=== PATIENT | male | born 1975 | race Caucasian/White ===

== ENCOUNTER 2020-08-11 13:38 | Inpatient (IN) | payer OTHER, SELFPAY ==
[2020-08-11] VITALS (8 sets, daily range): BP systolic 117–147; BP diastolic 69–87; PULSE 87–110; RESP 14–32; TEMP 37.1–39.3; O2SAT 85–98; BMI 40.8
--- NOTE | ~2020-08-11 | XR_ITS ---
EXAMINATION: XR CHEST CLINICAL INFORMATION: Shortness of breath COMPARISON: Chest radiographs 01/25/2019, 06/27/2010 TECHNIQUE: Portable upright AP view of the chest was obtained. FINDINGS: There are scattered patchy airspace opacities bilateral mid and lower zones, greater on the right. No definite associated effusion. The heart is normal in size. The vascularity is normal. XR/XR chest 1V IMPRESSION: Bilateral patchy airspace opacities mid and lower zones, greater on right. Finding may be related to multifocal or atypical/viral pneumonia.
--- NOTE | 2020-08-11 13:55 | ED.SOB ---
HPI - SOB/Dyspnea General Chief Complaint: Dyspnea Stated Complaint: FLU LIKE SYMPTOMS Time Seen by Provider: 08/11/20 13:55 Source: patient Mode of arrival: EMS Limitations: no limitations History of Present Illness HPI Narrative: 2 days of fever, chills, cough, and shortness of breath. Had finished his Covid vaccinations in early July elicited complaint: shortness of breath Pertinent past history: asthma Onset (ago): day(s) Context: recent illness Timing: constant Severity: moderate Exacerbating factors: exertion Relieving factors: oxygen Known history of: asthma Associated symptoms: fever, cough and lightheadedness Treatment prior to arrival: oxygen Related Data Allergies Allergy/AdvReac Type Severity Reaction Status Date / Time morphine [Morphine] Allergy Intermediate RASH/SWELLI Unverified 12/25/19 17:44 NG Review of Systems Constitutional: Constitutional: Reports no additional constitutional complaints Eyes: Eyes: Reports no additional eye complaints ENT: Denies dizziness Cardiovascular: Cardiovascular: Reports no additional cardiovascular complaints Respiratory: Respiratory: Reports as per HPI Gastrointestinal: Gastrointestinal: Reports no additional gastrointestinal complaints Musculoskeletal: Musculoskeletal: Reports no additional musculoskeletal complaints Integumentary/Breasts: Skin/Breast: Denies rash Neurologic: Reports system reviewed and no additional complaints, except as documented, Denies dizziness and Denies Sensory deficit (Neuro) Psychiatric: Psychiatric: Denies anxiety PMFSH Past Medical History Medical History Asthma Hypertension Surgical History H/O gastric bypass Social History Social History Advance Directives: Yes Advance Directives Information Provided: Yes Advance Directives on File: No Physical Exam Vital Signs: Vital Signs: Last Vital Signs Temp 99.3 F 08/11/20 16:13 Pulse 97 08/11/20 16:13 Resp 19 08/11/20 16:13 BP 127/81 08/11/20 16:13 Pulse Ox 95 08/11/20 16:13 Body Mass Index 40.8 Const: Other: Male short of breath Nutritional Appearance: obese Orientation/consciousness: oriented to person and patient oriented x3 Limitations: no limitations HENMT: Head: Yes normal to inspection Ears: external ears normal General nose exam: Normal external nose present Mouth: Normal oral and palatal mucosa present and oropharynx normal Throat: Yes posterior oropharynx normal Eyes: General: appearance normal, both eyes and all related structures Neck: Other: supple Neck: Yes normal visual inspection Chest: Chest palpation & inspection: normal inspection of the chest Resp: Other: rales at right base Cardio: Jugular venous distension: no JVD Rate: regular rate Rhythm: regular rhythm Heart sounds: S1 normal heart sound present and S2 normal heart sound present GI: Inspection: Yes normal to inspection Palpation (GI): Soft to palpation, nontender and No hepatosplenomegaly present Auscultation: normal bowel sounds : General: Yes no CVA tenderness Back/Spine/Pelvis: Back: no CVA tenderness Skin: General skin exam: no rashes or lesions noted Neuro: General: oriented to person and patient oriented x3 Cranial nerves: Yes CN's II-XII intact bilaterally Motor exam (neuro): 5/5 motor strength present throughout Sensory Exam: No Sensory deficit (Neuro) Extrem: General: Yes normal to inspection Psych: Appearance: grossly normal MDM - SOB/Dyspnea MDM Narrative Medical decision making narrative: patient with right lower lobe rales, fever and hypoxia, CXR show right LLL infiltrate started abx, not currently septic, will admit. COVID negative Differential Diagnosis Differential diagnosis: Likely pneumonia Lab Data Result diagrams: 08/11/20 14:05 08/11/20 14:05 Labs: Lab Results 08/11/20 08/11/20 08/11/20 Range/Units 14:05 14:05 14:05 WBC 12.5 H (4.8-10.8) X10*3/uL RBC 6.32 H (4.60-5.80) X10*6/uL Hgb 12.3 L (14.0-18.0) g/dl Hct 39.2 L (42-52) % MCV 62.0 L (80-98) fL MCH 19.5 L (27.0-33.0) pg MCHC 31.4 (31.0-36.0) g/dl RDW 18.6 H (11.0-16.0) % Plt Count 211 (160-400) X10*3/uL MPV Not Reportable Immature Gran % (Auto) 0.3 (0.0-0.4) % Neut % (Auto) 84.4 H (45-73) % Lymph % (Auto) 6.0 L (20-40) % [facility] % (Auto) 8.9 (2-11) % Eos % (Auto) 0.2 (0-4) % Baso % (Auto) 0.2 (0-2) % Lymph # (Auto) 0.8 L (1.2-4.9) X10*3/uL [facility] [facility] # (Auto) 1.1 (0.1-1.2) X10*3/uL Eos # (Auto) 0.0 (0.0-0.4) X10*3/uL Baso # (Auto) 0.0 (0.0-0.2) X10*3/uL Abs Immat Gran (auto) 0.04 H (0.00-0.03) X10*3/uL Absolute Neuts (auto) 10.5 H (2.0-8.3) X10*3/uL Absolute Nucleated RBC 0.000 (0.0-0.012) X10*3/uL Nucleated RBC % (auto) 0.0 (0.0-0.2) /100WBC Smear Tech's Comments VERIFIED PT 17.2 H (10.8-13.0) SEC INR 1.4 H (0.9-1.1) APTT 34.3 (24.1-38.0) SEC Sodium (135-145) mmol/L Potassium (3.3-5.1) mmol/L Chloride (96-108) mmol/L Carbon Dioxide (22-29) mmol/L Anion Gap (12-20) BUN (9-16) mg/dL Creatinine (0.5-1.4) mg/dL Estim Creat Clear Calc Estimated GFR Random Glucose (60-115) mg/dL Lactic Acid 1.4 (0.5-2.0) mmol/L Calcium (8.4-10.2) mg/dL Total Bilirubin (0.0-1.0) mg/dL Urine Color Urine Appearance Urine pH (5.0-8.0) Ur Specific [place] (1.005-1.025) Urine Protein (NEG-TRACE) MG/DL Urine Glucose (UA) (NEG) MG/DL Urine Ketones (NEG) MG/DL Urine Blood (NEG) Urine Nitrite (NEG) Ur Leukocyte Esterase (NEG) Urine RBC (0) /HPF Urine WBC (0-4) /HPF Ur Squamous Epith Cells /LPF Urine Bacteria /LPF Coronavirus (PCR) (Negative) Influenza Type A (PCR) (Negative) Influenza Type B (PCR) (Negative) RSV RNA Qual (PCR) (Negative) 08/11/20 08/11/20 08/11/20 Range/Units 14:05 14:05 16:16 WBC (4.8-10.8) X10*3/uL RBC (4.60-5.80) X10*6/uL Hgb (14.0-18.0) g/dl Hct (42-52) % MCV (80-98) fL MCH (27.0-33.0) pg MCHC (31.0-36.0) g/dl RDW (11.0-16.0) % Plt Count (160-400) X10*3/uL MPV Immature Gran % (Auto) (0.0-0.4) % Neut % (Auto) (45-73) % Lymph % (Auto) (20-40) % [facility] [place] [facility] % (Auto) (2-11) % Eos % (Auto) (0-4) % Baso % (Auto) (0-2) % Lymph # (Auto) (1.2-4.9) X10*3/uL [facility] [place] # (Auto) (0.1-1.2) X10*3/uL Eos # (Auto) (0.0-0.4) X10*3/uL Baso # (Auto) (0.0-0.2) X10*3/uL Abs Immat Gran (auto) (0.00-0.03) X10*3/uL Absolute Neuts (auto) (2.0-8.3) X10*3/uL Absolute Nucleated RBC (0.0-0.012) X10*3/uL Nucleated RBC % (auto) (0.0-0.2) /100WBC Smear Tech's Comments PT (10.8-13.0) SEC INR (0.9-1.1) APTT (24.1-38.0) SEC Sodium 138 (135-145) mmol/L Potassium 2.7 L (3.3-5.1) mmol/L Chloride 102 (96-108) mmol/L Carbon Dioxide 28 (22-29) mmol/L Anion Gap 11 L (12-20) BUN 7 L (9-16) mg/dL Creatinine 0.70 (0.5-1.4) mg/dL Estim Creat Clear Calc 183.4 Estimated GFR > 60 Random Glucose 129 H (60-115) mg/dL Lactic Acid (0.5-2.0) mmol/L Calcium 7.8 L (8.4-10.2) mg/dL Total Bilirubin 1.1 H (0.0-1.0) mg/dL Urine Color YELLOW Urine Appearance CLEAR Urine pH 6.0 (5.0-8.0) Ur Specific [place] 1.020 (1.005-1.025) Urine Protein NEG (NEG-TRACE) MG/DL Urine Glucose (UA) NEG (NEG) MG/DL Urine Ketones NEG (NEG) MG/DL Urine Blood NEG (NEG) Urine Nitrite POS H (NEG) Ur Leukocyte Esterase NEG (NEG) Urine RBC 0 (0) /HPF Urine WBC 0 (0-4) /HPF Ur Squamous Epith Cells NONE /LPF Urine Bacteria 3+ /LPF Coronavirus (PCR) NEGATIVE (Negative) Influenza Type A (PCR) NEGATIVE (Negative) Influenza Type B (PCR) NEGATIVE (Negative) RSV RNA Qual (PCR) NEGATIVE (Negative) Discharge Plan Discharge Clinical Impression: Community acquired pneumonia Qualifiers: Laterality: right Lung location: lower lobe of lung Qualified Code(s): J18.9 - Pneumonia, unspecified organism Patient Disposition: Admitted As Inpatient
[2020-08-11 14:17] LABS: INTERNATIONAL NORM RATIO 1.4 (0.9-1.1); Prothrombin Time 17.2 SEC (10.8-13.0)
[2020-08-11 14:20] LABS: Basophils Percent Auto 0.2 % (0-2); Eosinophils Percent Auto 0.2 % (0-4); Imm Gran Abs Auto 0.04 X10*3/uL (0.00-0.03); Imm Gran Pct Auto 0.3 % (0.0-0.4); MANUAL DIFF FLAG SCAN; Partial Thromboplastin Time 34.3 SEC (24.1-38.0); Red Cell Distribution Width 18.6 % (11.0-16.0); SCAN SMEAR FLAG 1
[2020-08-11 14:22] LABS: Hematocrit 39.2 % (42-52); Lymphocytes Absolute Auto 0.8 X10*3/uL (1.2-4.9); Mean Corpuscular HGB Conc 31.4 g/dl (31.0-36.0); Mean Corpuscular Hemoglobin 19.5 pg (27.0-33.0); Monocytes Absolute Auto 1.1 X10*3/uL (0.1-1.2); Monocytes Percent Auto 8.9 % (2-11); Neutrophils Absolute Auto 10.5 X10*3/uL (2.0-8.3); Neutrophils Percent Auto 84.4 % (45-73); Platelet Count 211 X10*3/uL (160-400); Red Blood Count 6.32 X10*6/uL (4.60-5.80); White Blood Count 12.5 X10*3/uL (4.8-10.8)
[2020-08-11 14:23] LABS: PLT ABN DIST 1
[2020-08-11 14:24] LABS: Hemoglobin 12.3 g/dl (14.0-18.0)
[2020-08-11 14:35] LABS: SLIDE REVIEW VERIFIED
[2020-08-11 14:36] LABS: Lactic Acid 1.4 mmol/L (0.5-2.0)
[2020-08-11 14:45] LABS: Bilirubin Total 1.1 mg/dL (0.0-1.0); Blood Urea Nitrogen 7 mg/dL (9-16); Calcium 7.8 mg/dL (8.4-10.2); Carbon Dioxide 28 mmol/L (22-29); Chloride 102 mmol/L (96-108); Creatinine Clr Calc Pharmacy 183.4; Estimated Glomerular Filt Rate > 60; Glucose Random 129 mg/dL (60-115); Sodium 138 mmol/L (135-145)
[2020-08-11 14:47] LABS: Anion Gap 11 (12-20); Potassium 2.7 mmol/L (3.3-5.1)
[2020-08-11 14:52] LABS: Influenza A PCR NEGATIVE (Negative); Influenza B PCR NEGATIVE (Negative); Resp Syncy Virus RNA Qual PCR NEGATIVE (Negative); SARS COV2 PCR INHOUSE NEGATIVE (Negative)
[2020-08-11] MEDS: cefTRIAXone sodium 2 GM in 0.9 % Sodium Chloride 50 ML IV (16:05)
[2020-08-11 16:24] LABS: Glucose Urine UA NEG (NEG); Leukocyte Esterase Urine NEG (NEG); Nitrite Urine POS (NEG); UACC Culture Trigger YES; Urine Blood NEG (NEG); Urine Ketones NEG (NEG); Urine Protein NEG (NEG-TRACE)
[2020-08-11 16:28] LABS: Appearance Urine CLEAR; Color Urine YELLOW
[2020-08-11 16:36] LABS: Bacteria Urine 3+ /LPF; RBC Urine 0 /HPF (0); WBC Urine 0 /HPF (0-4)
[2020-08-11] MEDS: Azithromycin 500 MG in 0.9 % Sodium Chloride 250 ML 125 MG IV (16:44)
--- NOTE | 2020-08-11 16:46 | PC.NURSE ---
KCL INFUSION NOT COMPATIBLE WITH CURRENTLY INFUSING ABX, WILL HOLE KCL ATT.
[2020-08-11] MEDS: Potassium Chloride ER 20 MEQ TAB.ER.PRT 40 MEQ PO (19:03)
[2020-08-11] MEDS: Acetaminophen 325 MG TABLET 650 MG PO (20:35)
--- NOTE | 2020-08-11 21:14 | HP_ITS ---
DATE OF SERVICE: 08/11/2020 CHIEF COMPLAINT: Shortness of breath. HISTORY OF PRESENTING ILLNESS: This is a 44-year-old gentleman with past medical history significant for gastric bypass surgery, history of asthma and hypertension, who presented to [facility] with 2 days history of fever, chills, cough productive of blood-tinged sputum after episodes of coughing fits. The patient also complains of associated nausea, vomiting, and chronic diarrhea related to bypass surgery. The patient received this COVID vaccine mid July. He denies any sick contacts. Denies any recent travel. He also complains of headache, dizziness, and chronic leg discomfort. The patient's workup in the ER revealed a WBC count of 12,500. Chest x-ray showed bilateral airspace opacities, right greater than left. The patient received IV ceftriaxone and azithromycin and now being admitted for continued monitoring and treatment. PAST MEDICAL HISTORY: Significant for, 1. Asthma. 2. Hypertension. PAST SURGICAL HISTORY: Status post gastric bypass surgery in January of 2020. SOCIAL HISTORY: The patient lives alone. Denies history of smoking or alcohol abuse. The patient is disabled. FAMILY HISTORY: 1. Father is , he is not aware of his medical health. 2. Mother in 2016 due to infection in lungs. ALLERGIES: HE IS ALLERGIC TO MORPHINE THAT CAUSES RASH AND SWELLING. HOME MEDICATIONS: None. 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 CVS: He denies any chest pain. GI: Complains of nausea, vomiting, and chronic diarrhea due to bypass surgery. : No urinary symptoms of urgency or frequency. MUSCULOSKELETAL: The patient has chronic leg discomfort. Rest of all other systems are reviewed and are negative. PHYSICAL EXAMINATION: GENERAL: The patient is resting in bed, in no acute distress. HEENT: Pupils equal, round, and reactive to light and accommodation. NECK: Supple. No increased JVD. LUNGS: With right basilar crackles. ABDOMEN: Obese and nontender. Bowel sounds audible. Midline scar, well healed. EXTREMITIES: No clubbing, cyanosis, or edema. NEUROLOGIC: Nonfocal. SKIN: Without any rashes. LABORATORY DATA: Showed a WBC 12.5, hematocrit of 39.2, platelet count of 211. Sodium 138, potassium low at 2.7, anion gap of 11, BUN 7, blood sugar 129, total bilirubin 1.1. Blood cultures are pending. Urinalysis showed positive nitrites, 3+ bacteria. ASSESSMENT AND PLAN: This is a 44-year-old gentleman with past medical history significant for asthma, hypertension and status post gastric bypass surgery, presented to [facility] with 2 days of fever, chills, cough, shortness of breath as well as nausea, vomiting, headache and dizziness. The patient has been diagnosed to have multifocal pneumonia and hypokalemia. PROBLEM LIST: 1. Multifocal pneumonia. The patient will be treated with IV antibiotic, Levaquin, we will add cough medication, oxygen as needed. The patient is not on home O2. We will check Legionella and Strep pneumo antigen due to GI symptoms. We will follow 2 sets of blood cultures. The patient's urinalysis was also positive. We will follow urine cultures as well. 2. Hypokalemia due to gastrointestinal loss. The patient's potassium will be aggressively replaced. We will follow BMP at a.m. 3. History of asthma with no acute exacerbation. 4. Deep vein thrombosis prophylaxis with heparin. MD HANNA Benz/NELL / [phone]
[2020-08-12] VITALS: BP 131/69; PULSE 82; RESP 32; TEMP 37.4; O2SAT 97
[2020-08-12 00:10] VITALS: BP 131/69; PULSE 81; RESP 32; TEMP 37.4
--- NOTE | 2020-08-12 00:17 | PC.NURSE ---
verified with rn and report has been given and pt is ready for transfer to the floor.
[2020-08-12] MEDS: levoFLOXacin/D5W 500 MG/100 ML PIGGYBACK 100 MG IV (00:56)
[2020-08-12 00:57] VITALS: BP 164/90; PULSE 84; RESP 20; TEMP 36.4; O2SAT 96
[2020-08-12] MEDS: Heparin Sodium,Porcine 5,000 UNIT/ML VIAL 5000 UNIT SUBCUT ×2 (00:57→14:11)
[2020-08-12] MEDS: guaiFENesin DM 200/20/10 ML 10 ML SYRUP PO ×5 (00:57→23:06)
[2020-08-12] MEDS: ALPRAZolam 0.5 MG TABLET 1 MG PO ×2 (01:54→20:25)
[2020-08-12] MEDS: Acetaminophen 325 MG TABLET 650 MG PO ×2 (05:44→14:12)
[2020-08-12 06:51] LABS: Basophils Percent Auto 0.2 % (0-2); Eosinophils Percent Auto 0.2 % (0-4); Hematocrit 36.4 % (42-52); MANUAL DIFF FLAG SCAN; Red Blood Count 5.81 X10*6/uL (4.60-5.80); SCAN SMEAR FLAG 1
[2020-08-12 06:53] LABS: Hemoglobin 11.3 g/dl (14.0-18.0); Imm Gran Abs Auto 0.07 X10*3/uL (0.00-0.03); Imm Gran Pct Auto 0.4 % (0.0-0.4); Lymphocytes Absolute Auto 1.7 X10*3/uL (1.2-4.9); Lymphocytes Percent Auto 10.2 % (20-40); Mean Corpuscular Hemoglobin 19.4 pg (27.0-33.0); Monocytes Absolute Auto 1.2 X10*3/uL (0.1-1.2); Monocytes Percent Auto 7.2 % (2-11); Neutrophils Absolute Auto 13.2 X10*3/uL (2.0-8.3); Neutrophils Percent Auto 81.8 % (45-73); Platelet Count 183 X10*3/uL (160-400); White Blood Count 16.2 X10*3/uL (4.8-10.8)
[2020-08-12 06:54] LABS: Anion Gap 8 (12-20); Blood Urea Nitrogen 6 mg/dL (9-16); Calcium 7.4 mg/dL (8.4-10.2); Carbon Dioxide 32 mmol/L (22-29); Chloride 105 mmol/L (96-108); Creatinine Clr Calc Pharmacy 197.5; Estimated Glomerular Filt Rate > 60; Glucose Random 113 mg/dL (60-115); Potassium 3.2 mmol/L (3.3-5.1); Sodium 142 mmol/L (135-145)
[2020-08-12 07:04] LABS: Mean Corpuscular Volume 62.7 fL (80-98); PLT ABN DIST 1
[2020-08-12 07:25] LABS: SLIDE REVIEW VERIFIED
[2020-08-12 07:52] VITALS: BP 154/80; PULSE 74; RESP 20; TEMP 37.3; O2SAT 97
--- NOTE | 2020-08-12 08:57 | MHC.CM.PN ---
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 DISCHARGE PLAN: HOME W/RESUMP OF FULL STACK ENGINEER HRS, FRIEND TO TRANSPORT HCP: REGINA ONEILL (DTR) [phone]
[2020-08-12] MEDS: lisinopriL 10 MG TABLET PO (09:46)
[2020-08-12] MEDS: 0.9 % Sodium Chloride Flush 3 ML SYRINGE IVFLUSH ×3 (09:46→20:26)
--- NOTE | 2020-08-12 10:06 | P.PNIM_ITS ---
Subjective Subjective Date of Service: 08/12/20 Interval History: Patient feels significantly better this a.m., coughing up criss colored phlegm, had a fever of 101 last night, afebrile this a.m. denies shortness of breath. General no headache, no dizziness, no fever chills. CVS no chest pain, no palpitation. Respiratory productive cough,no sob. Gastrointestinal no nausea, no vomiting, no abdominal pain Physical Exam Vital Signs: Vital Signs: Last Vital Signs Temp 99.1 F 08/12/20 07:52 Pulse 74 08/12/20 07:52 Resp 20 08/12/20 07:52 BP 154/80 H 08/12/20 07:52 Pulse Ox 97 08/12/20 07:52 Body Mass Index 40.8 General no acute distress. Neck no JVD. CVS regular rate rhythm, Respiratory bibasilar crackles, no respiratory distress, no wheeze Gastrointestinal abdomen soft, obese, nontender, bowel sounds audible, midline scar, no guarding , no rigidity. Extremities mild edema. Neuro nonfocal , speech clear. Psych appropriate affect Skin no rash Objective Data Current Medications Generic Name Dose Route Start Last Admin Trade Name Freq PRN Reason Stop Dose Admin Acetaminophen 650 mg 08/12/20 00:09 08/12/20 05:44 Acetaminophen 325 Mg Tablet PO 650 mg Q6H PRN Administration Pain, Mild (Pain Scale 1-3) Alprazolam 1 mg 08/12/20 20:00 08/12/20 01:54 Alprazolam 0.5 Mg Tablet PO 1 mg DAILY@1999 [facility] Administration Escitalopram Oxalate 20 mg 08/12/20 20:00 Escitalopram Oxalate 20 Mg Tablet PO DAILY@1999 [facility] Guaifenesin/Dextromethorphan 10 ml 08/12/20 00:09 08/12/20 05:44 Guaifenesin Dm 200/20/10 Ml 10 Ml Syrup PO 10 ml Q6H [facility] Administration Heparin Sodium (Porcine) 5,000 unit 08/12/20 01:00 08/12/20 00:57 Heparin Sodium,Porcine 5,000 Unit/Ml Vial SUBCUT 5,000 unit Q12H [facility] Administration Levofloxacin 500 mg in 100 mls @ 100 mls/hr 08/12/20 22:00 Levaquin IV Q24H [facility] Lisinopril 10 mg 08/12/20 09:00 08/12/20 09:46 Lisinopril 10 Mg Tablet PO 10 mg DAILY [facility] Administration Ondansetron HCl 4 mg 08/12/20 00:09 Ondansetron Hcl 4 Mg/2 Ml Vial IVPUSH Q8H PRN Nausea and Vomiting Sodium Chloride 3 ml 08/12/20 00:09 08/12/20 09:46 0.9 % Sodium Chloride Flush 3 Ml Syringe IVFLUSH 3 ml QSHIFT [facility] Administration Labs CBC & Chem 7: 08/12/20 06:06 08/12/20 06:06 Assessment and Plan (1) Community acquired pneumonia: Status: Acute (2) Hypokalemia: Status: Acute Assessment and Plan: 44-year-old gentleman with past medical history significant for asthma, hypertension and status post gastric bypass surgery, presented to [facility] with 2 days of fever, chills, cough, shortness of breath as well as nausea, vomiting, headache and dizziness.patient has been diagnosed to have multifocal pneumonia and hypokalemia. 1. Community-acquired pneumonia chest x-ray showed multifocal pneumonia patient feels significantly better still coughing up criss phlegm and having high-grade fever. Will change antibiotics to IV Zosyn, continue cough medication, oxygen as needed. Follow Legionella and Strep pneumo antigen due to GI symptoms. blood cultures x2 pending. urinalysis is also positive, follow urine cultures. 2. Hypokalemia likley due to gastrointestinal loss.Potassium 3.2 this am ,will replace potassium and follow BMP at a.m. 3. History of asthma with no acute exacerbation. 4. Hypertension BP noted to be elevated this morning continue lisinopril 10 mg and follow BP closely 5. Deep vein thrombosis prophylaxis with heparin.
[2020-08-12] MEDS: Piperacillin Sodium/Tazobactam 3.375 GM in 0.9 % Sodium Chloride 50 ML IV ×3 (11:14→23:06)
[2020-08-12] MEDS: Potassium Chloride ER 20 MEQ TAB.ER.PRT 40 MEQ PO (11:15)
[2020-08-12 11:33] LABS: Glucose, Whole Blood 122 mg/dL (60-115)
--- NOTE | 2020-08-12 11:51 | P.CDIC_ITS ---
CDI Concurrent Query Service Date: 08/16/20 Documentation Clarification: Please clarify if you are treating a proba ble/suspected/likely or confirmed: Sepsis, present on admission No Sepsis wrong provider Provider Response: Other Other Diagnosis: wrong provider PLEASE DO NOT DELETE/MODIFY EXISTING CONTENT Additional information is needed in order to code to the highest accuracy and appropriate Severity of Illness (SOI). Please clarify the information noted below in your progress notes and discharge summary. Risk Factors/Clinical Indicators/Treatments 44 year old male admitted with dyspnea and flu like symptoms. Per H&P: Pneumonia and Hypokalemia T102.7, P 108, R 19, BP 127/81, SAT 95% WBC 12.5 LA 1.4 UA positive Blood culture pending Treated with IV antibiotic and oxygen prn CDS: Zeina Lynne RN Contact Number: [phone] Please Review the information above and exercise your independent professional judgment in responding to the query. If you concur, pleas document in the PROGRESS NOTES and DISCHARGE SUMMARY. If you do not agree with the query, please document in the query above. THIS QUERY IS PART OF THE PERMANENT MEDICAL RECORD
[2020-08-12 15:06] VITALS: BP 126/72; PULSE 90; RESP 16; TEMP 37.3; O2SAT 96
[2020-08-12] MEDS: Omeprazole 40 MG CAPSULE.DR PO (16:33)
[2020-08-12] MEDS: Escitalopram Oxalate 20 MG TABLET PO (20:26)
[2020-08-12 23:29] VITALS: BP 150/82; PULSE 85; RESP 20; TEMP 36.8; O2SAT 96
[2020-08-13] MEDS: Heparin Sodium,Porcine 5,000 UNIT/ML VIAL 5000 UNIT SUBCUT ×3 (00:48→23:28)
[2020-08-13] MEDS: Piperacillin Sodium/Tazobactam 3.375 GM in 0.9 % Sodium Chloride 50 ML IV ×4 (04:51→22:26)
[2020-08-13] MEDS: guaiFENesin DM 200/20/10 ML 10 ML SYRUP PO ×4 (05:28→23:28)
[2020-08-13] MEDS: Omeprazole 40 MG CAPSULE.DR PO ×2 (05:30→17:09)
[2020-08-13 06:09] LABS: MANUAL DIFF FLAG SCAN; Monocytes Absolute Auto 0.9 X10*3/uL (0.1-1.2); SCAN SMEAR FLAG 1
[2020-08-13 06:11] LABS: Basophils Percent Auto 0.1 % (0-2); Eosinophils Absolute Auto 0.2 X10*3/uL (0.0-0.4); Eosinophils Percent Auto 1.6 % (0-4); Hematocrit 36.3 % (42-52); Imm Gran Pct Auto 0.7 % (0.0-0.4); Lymphocytes Absolute Auto 1.9 X10*3/uL (1.2-4.9); Lymphocytes Percent Auto 12.9 % (20-40); Mean Corpuscular HGB Conc 30.3 g/dl (31.0-36.0); Monocytes Percent Auto 6.1 % (2-11); Neutrophils Absolute Auto 11.6 X10*3/uL (2.0-8.3); Neutrophils Percent Auto 78.6 % (45-73); Platelet Count 186 X10*3/uL (160-400); Red Cell Distribution Width 18.4 % (11.0-16.0); White Blood Count 14.8 X10*3/uL (4.8-10.8)
[2020-08-13 06:24] LABS: Mean Corpuscular Volume 62.6 fL (80-98)
[2020-08-13 06:25] LABS: PLT ABN DIST 1
[2020-08-13 06:32] LABS: Anion Gap 10 (12-20); Blood Urea Nitrogen 4 mg/dL (9-16); Calcium 7.7 mg/dL (8.4-10.2); Carbon Dioxide 31 mmol/L (22-29); Chloride 103 mmol/L (96-108); Creatinine Clr Calc Pharmacy 191.6; Estimated Glomerular Filt Rate > 60; Glucose Random 120 mg/dL (60-115); Potassium 3.1 mmol/L (3.3-5.1); Sodium 141 mmol/L (135-145)
[2020-08-13 06:43] LABS: SLIDE REVIEW VERIFIED
[2020-08-13 08:00] VITALS: BP 157/89; PULSE 75; RESP 19; TEMP 37.6; O2SAT 95
[2020-08-13] MEDS: 0.9 % Sodium Chloride Flush 3 ML SYRINGE IVFLUSH ×3 (08:49→22:27)
[2020-08-13] MEDS: lisinopriL 10 MG TABLET PO ×2 (08:49→14:13)
--- NOTE | 2020-08-13 11:44 | MHC.CM.PN ---
EMR REVIEWED, PER MULTIDISCIPLINARY ROUNS PT WILL NEED 1 MORE DAY OF IV ABX AND SALOMÓN THEN CHANGE TO PO, POSSIBLE D/C SAT. 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
--- NOTE | 2020-08-13 13:33 | P.PNIM_ITS ---
Subjective Subjective Date of Service: 08/18/20 Interval History: Patient feels significantly better this a.m., coughing less, no more fever General no headache, no dizziness, no fever chills. CVS no chest pain, no palpitation. Respiratory productive cough,no sob. Gastrointestinal no nausea, no vomiting, no abdominal pain Physical Exam Vital Signs: Vital Signs: Last Vital Signs Temp 99.6 F 08/13/20 08:00 Pulse 75 08/13/20 08:00 Resp 19 08/13/20 08:00 BP 157/89 H 08/13/20 08:00 Pulse Ox 95 08/13/20 08:00 Body Mass Index 40.8 General: AO X 3, no acute distress Resp: rhonci, no wheezes, normal respiratory effor CVS: S1,S2,RRR GI: +BS, NT, no distention Skin: No rash Neuro: motor grossly intact Psych: appropriate affect Objective Data Current Medications Generic Name Dose Route Start Last Admin Trade Name Freq PRN Reason Stop Dose Admin Acetaminophen 650 mg 08/12/20 00:09 08/12/20 14:12 Acetaminophen 325 Mg Tablet PO 650 mg Q6H PRN Administration Pain, Mild (Pain Scale 1-3) Alprazolam 1 mg 08/12/20 20:00 08/12/20 20:25 Alprazolam 0.5 Mg Tablet PO 1 mg DAILY@1999 [facility] Administration Escitalopram Oxalate 20 mg 08/12/20 20:00 08/12/20 20:26 Escitalopram Oxalate 20 Mg Tablet PO 20 mg DAILY@1999 [facility] Administration Guaifenesin/Dextromethorphan 10 ml 08/12/20 00:09 08/13/20 12:46 Guaifenesin Dm 200/20/10 Ml 10 Ml Syrup PO 10 ml Q6H [facility] Administration Heparin Sodium (Porcine) 5,000 unit 08/12/20 01:00 08/13/20 12:46 Heparin Sodium,Porcine 5,000 Unit/Ml Vial SUBCUT 5,000 unit Q12H [facility] Administration Piperacillin Sod/Tazobactam 50 mls @ 100 mls/hr 08/12/20 11:00 08/13/20 12:45 Sod 3.375 gm/ Sodium Chloride IV 100 mls/hr Q6H [facility] Administration Lisinopril 10 mg 08/12/20 09:00 08/13/20 08:49 Lisinopril 10 Mg Tablet PO 10 mg DAILY [facility] Administration Omeprazole 40 mg 08/12/20 16:30 08/13/20 05:30 Omeprazole 40 Mg Capsule. PO 40 mg BID@0630,0050 [facility] Administration Ondansetron HCl 4 mg 08/12/20 00:09 Ondansetron Hcl 4 Mg/2 Ml Vial IVPUSH Q8H PRN Nausea and Vomiting Sodium Chloride 3 ml 08/12/20 00:09 08/13/20 08:49 0.9 % Sodium Chloride Flush 3 Ml Syringe IVFLUSH 3 ml QSHIFT [facility] Administration Labs CBC & Chem 7: 08/14/20 06:13 08/14/20 06:13 Microbiology Microbiology Results: Microbiology 08/11/20 16:16 Urine clean catch - Clean Catch Midstream Urine Culture - Final Klebsiella ozaenae 08/11/20 15:40 Blood - Venous Blood Culture - Preliminary No growth after 24 hours. 08/11/20 14:05 Blood - Venous Blood Culture - Preliminary No growth after 24 hours. Assessment and Plan (1) Community acquired pneumonia: Status: Acute (2) Hypokalemia: Status: Acute Assessment and Plan: 44-year-old gentleman with past medical history significant for asthma, hypertension and status post gastric bypass surgery, presented to [facility] with 2 days of fever, chills, cough, shortness of breath as well as nausea, vomiting, headache and dizziness.patient has been diagnosed to have multifocal pneumonia and hypokalemia. 1. Community-acquired pneumonia --Clinically responding to Zosy, fever gone, WBC down -Continue IV Zosyn for today, then changed to Oral Augmentin, Ceftin or Levaquin for total of 7 dayss 2. Hypokalemia likley due to gastrointestinal loss.Potassium 3.21 this am ,will replace potassium and follow BMP at a.m. 3. History of asthma with no acute exacerbation. 4. Hypertension moderately high, Increase Lisinopril to 20 from 10 and persistently high, add Norvasc 5. Deep vein thrombosis prophylaxis with heparin. I think he can go home tomorrow if he continues on current trajectory
[2020-08-13] MEDS: Potassium Chloride ER 20 MEQ TAB.ER.PRT 40 MEQ PO ×2 (14:14→22:26)
[2020-08-13 15:25] VITALS: BP 134/66; PULSE 71; RESP 20; TEMP 36.8; O2SAT 97
[2020-08-13] MEDS: ALPRAZolam 0.5 MG TABLET 1 MG PO (22:26)
[2020-08-13] MEDS: Escitalopram Oxalate 20 MG TABLET PO (22:26)
[2020-08-13 23:18] VITALS: BP 140/72; PULSE 82; RESP 18; TEMP 36.4; O2SAT 96
[2020-08-14] MEDS: Piperacillin Sodium/Tazobactam 3.375 GM in 0.9 % Sodium Chloride 50 ML IV ×2 (06:07→11:14)
[2020-08-14] MEDS: Omeprazole 40 MG CAPSULE.DR PO (06:07)
[2020-08-14] MEDS: guaiFENesin DM 200/20/10 ML 10 ML SYRUP PO ×2 (06:07→11:14)
[2020-08-14 06:47] LABS: Hemoglobin 10.7 g/dl (14.0-18.0); Mean Corpuscular HGB Conc 30.6 g/dl (31.0-36.0); Platelet Count 211 X10*3/uL (160-400); Red Blood Count 5.62 X10*6/uL (4.60-5.80); Red Cell Distribution Width 17.8 % (11.0-16.0); White Blood Count 11.6 X10*3/uL (4.8-10.8)
[2020-08-14 06:48] LABS: Mean Corpuscular Volume 62.3 fL (80-98)
[2020-08-14 07:02] LABS: Anion Gap 10 (12-20); Blood Urea Nitrogen 8 mg/dL (9-16); Calcium 8.1 mg/dL (8.4-10.2); Carbon Dioxide 34 mmol/L (22-29); Chloride 102 mmol/L (96-108); Creatinine Clr Calc Pharmacy 194.5; Estimated Glomerular Filt Rate > 60; Glucose Random 110 mg/dL (60-115); Potassium 3.7 mmol/L (3.3-5.1); Sodium 142 mmol/L (135-145)
[2020-08-14 07:12] VITALS: BP 125/66; PULSE 74; RESP 18; TEMP 36.7; O2SAT 96
[2020-08-14] MEDS: 0.9 % Sodium Chloride Flush 3 ML SYRINGE IVFLUSH (08:40)
[2020-08-14] MEDS: Potassium Chloride ER 20 MEQ TAB.ER.PRT 40 MEQ PO (08:40)
[2020-08-14] MEDS: lisinopriL 20 MG TABLET PO (08:40)
--- NOTE | 2020-08-14 11:21 | PM.DS ---
DS: Providers Provider Date of Service: 08/14/20 Date of admission: 08/11/20 21:06 Primary care physician: Mago Vidal MD DS: Diagnosis Discharge Diagnosis (1) Community acquired pneumonia: Status: Acute (2) Hypokalemia: Status: Acute DS: Medications Discharge Medications Home Medications: Home Medications Medication Instructions Recorded Confirmed alprazolam [Xanax] 1 mg PO QPM 08/12/20 08/12/20 citalopram [Celexa] 40 mg PO QPM 08/12/20 08/12/20 lisinopril 10 mg PO DAILY 08/12/20 08/12/20 Previous Rx's Medication Instructions Recorded Prilosec 40 mg PO BID #0 08/14/20 levofloxacin 500 mg PO DAILY 5 Days #5 tab 08/14/20 potassium chloride 20 meq PO DAILY #30 tab 08/14/20 DS: Summary Hospital Course Hospital Course: HPI CHIEF COMPLAINT: Shortness of breath. HISTORY OF PRESENTING ILLNESS: 44-year-old gentleman with past medical history significant for gastric bypass surgery, history of asthma and hypertension, who presented to [facility] with 2 days history of fever, chills, cough productive of blood-tinged sputum after episodes of coughing fits. The patient also complains of associated nausea, vomiting, and chronic diarrhea related to bypass surgery. The patient received this COVID vaccine mid July. He denies any sick contacts. Denies any recent travel. He also complains of headache, dizziness, and chronic leg discomfort. The patient's workup in the ER revealed a WBC count of 12,500. Chest x-ray showed bilateral airspace opacities, right greater than left. The patient received IV ceftriaxone and azithromycin and now being admitted for continued monitoring and treatment. PAST MEDICAL HISTORY: Significant for, 1. Asthma. 2. Hypertension. PAST SURGICAL HISTORY: Status post gastric bypass surgery in January of 2020. Hospital course 44-year-old gentleman with past medical history significant for asthma, hypertension and status post gastric bypass surgery, presented to [facility] with 2 days of fever, chills, cough, shortness of breath as well as nausea, vomiting, headache and dizziness.patient has been diagnosed to have multifocal pneumonia and hypokalemia. 1. Patient admitted with the diagnosis of Community-acquired pneumonia ,treated with iv Zosy, fever resolved, WBC down,patient with no symptoms of uti however urine culture grew klebsiella ozaenae resistant to pcn, therefore will discharge patient home on Levaquin that will cover both pneumonia and UTI, blood culture showed no growth, clinically patient is significantly better with no shortness of breath and less coughing episode. 2. Hypokalemia likley due to gastrointestinal loss.Potassium normalized will discharge patient home on by mouth potassium 20 mEq daily, and recommend BMP in 1 week, patient has chronic diarrhea recommended to discussed diet modification with dietitian for weight loss. 3. History of asthma with no acute exacerbation. 4. Hypertension noted to have elevated blood pressures, continue lisinopril 10 mg and recommended outpatient follow-up with PCP and increase dose of lisinopril to 20 mg if BP remained elevated. Time Spent with Patient Time attestation: Total time spent providing and/or coordinating discharge services: Discharge coordination time: Greater than 30 minutes Physical Exam Vital Signs: Vital Signs: Last Vital Signs Temp 98.1 F 08/14/20 07:12 Pulse 74 08/14/20 07:12 Resp 18 08/14/20 07:12 BP 125/66 08/14/20 07:12 Pulse Ox 96 08/14/20 07:12 Body Mass Index 40.8 General no acute distress. Neck supple no JVD. CVS regular rate rhythm, Respiratory lungs clear to auscultation, no respiratory distress, no wheeze, no rhonchi. Gastrointestinal abdomen soft, nontender, bowel sounds audible, no guarding , no rigidity. Extremities no edema. Neuro nonfocal Skin no rash DS: Data Data Completed and Pending Labs on day of discharge: Laboratory Results - last 24 hr 08/14/20 08/14/20 06:13 06:13 WBC 11.6 H RBC 5.62 Hgb 10.7 L Hct 35.0 L MCV 62.3 L MCH 19.0 L MCHC 30.6 L RDW 17.8 H Plt Count 211 MPV Not Reportable Absolute Nucleated RBC 0.000 Nucleated RBC % (auto) 0.0 Sodium 142 Potassium 3.7 Chloride 102 Carbon Dioxide 34 H Anion Gap 10 L BUN 8 L D Creatinine 0.66 Estim Creat Clear Calc 194.5 Estimated GFR > 60 Random Glucose 110 Calcium 8.1 L Preliminary micro results at discharge 08/11/20 15:40 Blood Culture - Preliminary Blood - Venous No growth after 48 hours. 08/11/20 14:05 Blood Culture - Preliminary Blood - Venous No growth after 48 hours. Discharge Plan Discharge Patient Disposition: Home, Self-Care Discharge Diagnosis: Klebsiella uti multifocal peumonia Referrals: Mago Vidal MD [Primary Care Provider] - 1 Week Discharge Medications: New levofloxacin 500 mg tablet 500 mg PO DAILY 5 Days Qty: 5 RF: 0 potassium chloride 20 mEq tablet extended release 20 meq PO DAILY Qty: 30 RF: 0 Continued alprazolam [Xanax] 1 mg Tablet 1 mg PO QPM RF: 0 citalopram [Celexa] 40 mg Tablet 40 mg PO QPM RF: 0 lisinopril 10 mg PO DAILY RF: 0 Changed Prilosec 40 mg PO BID Qty: 0 RF: 0 Discharge Orders: Discharge Order (Routine); Ordered 08/14/20 Ordered By: Caroline Shankar Diet: advance to usual diet Activity on Discharge: As tolerated Stand Alone Forms: Patient Portal Discharge page Other Ambulatory Orders: Basic Metabolic Panel (Routine) Timeframe: 20200819 Facility: [facility] - Location: Laboratory Ordered By: Caroline Shankar Care Plan Goals: check potassium in 1 week Health Concerns: pneumonia and uti take antibiotic as prescribed /low potassium take potassium supplement and check poatssium in 1 week Plan of Treatment: follow up with pcp Assessment: As per dc summary
--- NOTE | 2020-08-14 11:59 | MHC.CM.PN ---
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 RN AWARE OF PLAN.
[2020-08-15 23:47] LABS: Strep Pneumo Ag urine Not Detected (Not Detected)
--- NOTE | 2020-08-17 09:26 | P.CDIR_ITS ---
Documented by User: Zeina Lynne RN 08/17/20 09:29 Retrospective Query Please clarify if you have treated a probable/suspected/likely or confirmed: Sepsis, present on admission No Sepsis PLEASE DO NOT DELETE/MODIFY EXISTING CONTENT Additional information is needed in order to code to the highest accuracy and appropriate Severity of Illness (SOI). Please clarify the information noted below in your progress notes and discharge summary. Risk Factors/Clinical Indicators/Treatments 44 year old male admitted with dyspnea and flu-like symptoms. Per H&P: Pneumonia and Hypokalemia T 102.7, P 108, R 19, BP 127/81, SAT 95% WBC 12.5 LA 1.4 UA positive Blood culture no growth Treated with IV antibiotic and prn oxygen CDS: Zeina Lynne RN Contact Number: [phone] Please Review the information above and exercise your independent professional judgment in responding to the query. If you concur, pleas document in the PROGRESS NOTES and DISCHARGE SUMMARY. If you do not agree with the query, plea se document in the query above. THIS QUERY IS PART OF THE PERMANENT MEDICAL RECORD Documented by User: Caroline Shankar MD 09/01/20 07:46 Retrospective Query Provider Response: Sepsis sepsis present on admission
[2020-08-17 18:11] LABS: Legionella Ag Urine Not Detected (Not Detected)
== END 2020-08-14 13:06 | disposition home or self-care (01) | DRG 194 ==
LOC: HO.ED 15:15 → HO.S3 22:09
PROVIDERS: Admitting Provider Hospitalist; Emergency Provider Emergency Medicine; PCP Internal Medicine; Visit Provider Internal Medicine
DX: J18.9 Pneumonia, unspecified organism (principal); N39.0 Urinary tract infection, site not specified; I10 Essential (primary) hypertension; B96.89 Other specified bacterial agents as the cause of diseases classified elsewhere; E87.6 Hypokalemia; J45.909 Unspecified asthma, uncomplicated; Z98.84 Bariatric surgery status; Z20.822 Contact with and (suspected) exposure to COVID-19; Z88.5 Allergy status to narcotic agent; Z79.899 Other long term (current) drug therapy
CPT/HCPCS: 0241U; 36415; 71045; 80048; 81001; 81003; 82247; 82947; 83605; 85025; 85027; 85060; 85610; 85730; 87040; 87086; 87088; 87186; 87449; 87899; 96361; 96365; 99285; J0456; J0696; J1956; J2543

== ENCOUNTER 2025-02-11 10:28 | Outpatient (AMB) | payer OTHER, SELFPAY ==
--- OUTSIDE RECORDS SUMMARY | 2025-02-09 10:10 | XMS_ITS | Encounter Summary ---
Author Organization [facility] Address [address] [place] [address] Care Team Providers Care Senior Electrical Project Manager Name Role Phone Mago Vidal MD Primary Care Provider [phone] Encounter Details Date Type Department Care Team (Late st Contact Info) Description 02/09/2025 10:10 AM [facility] Lab Draw Station - [address] [address] Encounter for screening for malignant neoplasm of prostate; Need for hepatitis C screening test; DM (diabetes mellitus), type 2 with neurological complications (CMS/HCC V24, CMS/HCC V28); Chronic bilateral low back pain with bilateral sciatica; Blurry vision Social History Tobacco Use Types Packs/Day Years Used Date Smoking Tobacco: Former Cigarettes Q uit: 06/23/2001 Smokeless Tobacco: Never Alcohol Use Standard Drinks/Week Comments No 0 (1 standard drink = 0.6 oz pur e alcohol) Housing Instability Answer Date Recorde d Are you worried that in the next 2 months you may not have stable housing? No 01/08/2025 Food Access & Nutrition Answer Date Rec orded Do you have access to a vari ety of food including fruits and vegetables? Yes 01/08/2025 Access to Healthcare Answer Date Record ed Within the last 3 months, ho w many times did you visit the emergency department for your medical care? 0 01/08/2025 Health Literacy Answer Date Recorded How often do you need to hav e someone help you when you read instructions, pamphlets, or other written material from your doctor or pharmacy? Rarely 01/08/2025 Caregiver: How often do you need to have someone help you when you read instructions, pamphlets, or other written material from your doctor or pharmacy? Not on file 01/08/2025 Financial Risk Answer Date Recorded How hard is it for you to pa y for the very basics like food, housing, medical care, and air conditioning / heating? Not very hard 01/08/2025 Transportation Answer Date Recorded Has the lack of transportati on kept you from meetings, work, or from getting things needed for daily living? Unable to respond 01/08/2025 Has the lack of transportati on kept you from medical appointments or from getting medications? No 01/08/2025 Social Isolation Answer Date Recorded How often do you feel lonely or isolated from those around you? Unable to respond 01/08/2025 Food Risk Answer Date Recorded Within the past 12 months we worried whether our food would run out before we got money to buy more. Sometimes true 025 Within the past 12 months th e food we bought just didn't last and we didn't have money to get more. Sometimes true 01/08/2025 Dependent Care Answer Date Recorded Do you need help finding or paying for care for your loved ones. For example, children's court magistrate or elderly care for an older adult? No 01/08/2025 Education Answer Date Recorded Do you think completing more education or training, like finishing a GED, going to college, or learning a trade, would be helpful for you? N/A 01/08/2025 Employment and Income Answer Date Recor ded During the last four weeks, have you been actively looking for work? No 01/08/2025 Living Situation Answer Date Recorded What is your living situation? Unrecognized valu e 01/08/2025 Sex and Gender Information Value Date Recorded Sex Assigned at Not on file Legal Sex Male 5:08 AM EST Gender Identity Not on file Sexual Orientation Not on file documented as of this encounter Plan of Treatment Upcoming Encounters Date Type Department Care Team (Late st Contact Info) Description 02/26/2025 2:30 PM EST Appointment [facility] Endoscopy [address] [place] [id number] Ramakrishna Stewart MD [address] [address] 03/11/2025 10:00 AM EST Office Visit Adult Medicine [address] [address] Presley Fuller NP [address] [place] [address] 06/16/2025 9:00 AM EDT Office Visit Bariatric Surgery - [place] [address] [place] [phone] Zack Momin MD [address] [place] [phone] documented as of this encounter Goals Goal Patient Goal Type Associated Problems Recent Progress Patient-Stated? Author Autogenera nichol Goal Care Plan Autogenerated Problem No Sharon Vaughn documented as of this encounter Procedures Procedure Name Priority Date/Time Associated Diagnosis Comments PROSTATE SPECIFIC ANTIGEN SCREEN Routine 02/09/2025 10:16 AM EST Encounter for screening for malignant neoplasm of prostate HEPATITIS C ANTIBODY Routine 02/09/2025 10:16 AM EST Need for hepatitis C screening test HEMOGLOBIN A1C Routine 02/09/2025 10:16 AM EST DM (diabetes mellitus), type 2 with neurological complications (CMS/HCC V24, CMS/HCC V28) Chronic bilateral low back pain with bilateral sciatica Blurry vision documented in this encounter Results * Hemoglobin A1c (02/09/2025 10:16 AM EST) Hemoglobin A1C 5.9 <6.5 % LAB CHEMISTRY METHOD 02/09/2025 4:26 PM EST [facility] Mean Bld Glu Estim. 123 mg/dL LAB CHEMISTRY METHOD 02/09/2025 4:26 PM EST [facility] Blood Venous blood specimen / Unknown Venipuncture / Unknown 02/09/2025 10:16 AM EST 02/09/2025 10:16 AM EST us Presley Fuller NP LAB BLOOD ORDERABLES Final R esult [facility] [address] [place] [address], [place] [phone] * Hepatitis C antibody (02/09/2025 10:16 AM EST) Pathologist [facility] Hepatitis C Antibody Negative Negative LAB CHEMISTRY METHOD 02/09/2025 4:36 PM EST [facility] Blood Venous blood specimen / Unknown Venipuncture / Unknown 02/09/2025 10:16 AM EST 02/09/2025 10:16 AM EST Presley Fuller HEAD OF VISUAL MERCHANDISING LAB BLOOD ORDERABLES Final R esult Performing Organization Address City/[facility]/ZIP Co de Phone Number [facility] [address] [place] [address], [place] [phone] * Prostate specific antigen screen (02/09/2025 10:16 AM EST) [facility] PSA 0.57 0.00 - 4.00 ng/mL LAB CHEMISTRY METHOD 02/09/2025 3:57 PM EST [facility] Blood Venous blood specimen / Unknown Venipuncture / Unknown 02/09/2025 10:16 AM EST 02/09/2025 10:16 AM EST Narrative [facility] - 02/09/2025 3:57 PM EST The Siemens Advia Centaur Chemiluminescent Immunoassay is used. Results obtained with different assay methods or kits cannot be used interchangeably. Results cannot be interpreted as absolute evidence of the presence or absence of malignant disease. Presley Fuller HEAD OF VISUAL MERCHANDISING LAB BLOOD ORDERABLES Final R esult [facility] [address] [place] [address], [place] [phone] documented in this encounter Visit Diagnoses Diagnosis Encounter for screening for malignant neoplasm of prostate Need for hepatitis C screening test Special screening examination for other specified viral diseases DM (diabetes mellitus), type 2 with neurological complications (CMS/HCC V24, CMS/HCC V28) Type II or unspecified type diabetes mellitus with neurological manifestations, not stated as uncontrolled Chronic bilateral low back pain with bilateral sciatica Blurry vision Other specified visual disturbances documented in this encounter Additional Health Concerns Active Problems Noted Date Diagnosed Date Autogenerated Problem 01/13/2025 Assessment Noted Time PHQ-9 Depression Total Score: 0 02/10/20 25 10:54 AM EST documented as of this encounter Care Teams Senior Electrical Project Manager Relationship Specialty Start Date End Date Mago Vidal MD [address] [place] [address] PCP - General Internal Medicine 02/22/15 documented as of this encounter
--- OUTSIDE RECORDS SUMMARY | 2025-02-09 11:00 | XMS_ITS | Encounter Summary ---
Author Organization [employer] Address [address] [place] [address] Care Team Providers Care Science Professor Name Role Phone Mago Vidal MD Primary Care Provider [phone] Reason for Referral * Medications - Pending Review Specialty Diagnoses / Procedures Referred By Hanane blackburn Referred To Contact Diagnoses DM (diabetes mellitus), type 2 with neurological complications (CMS/HCC V24, CMS/HCC V28) Presley Fuller NP [address] [place] [address] Phone: tel: fax: Referral ID Status Reason Start Date Expiration Date V isits Requested Visits Authorized [id number] Pending Review 1 Reason for Visit * Reason Comments Follow-up BP follow up Encounter Details Date Type Department Care Team ([facility] st Contact Info) Description 02/09/2025 11:00 AM EST Office Visit Adult Medicine [address] [phone] Presley Fuller NP [address] [place] [address] Uncontrolled hypertension (Primary Dx); Class 3 drug-induced obesity with serious comorbidity and body mass index (BMI) of 45.0 to 49.9 in adult (CMS/HCC V24, CMS/HCC V28); Chronic bilateral low back pain with bilateral sciatica; DM (diabetes mellitus), type 2 with neurological complications (CMS/HCC V24, CMS/HCC V28) Social History Tobacco Use Types Packs/Day Years Used Date Smoking Tobacco: Former Cigarettes Q uit: 06/23/2001 Smokeless Tobacco: Never Tobacco Cessation:Counseling Given: Not Answered Alcohol Use Standard Drinks/Week Comments No 0 [...] for your loved ones. For example, children's aide or elderly care for an older adult? [...] on file documented as of this encounter Last Filed Vital Signs Vital Sign Reading Time Taken Comments Blood Pressure 142/86 02/09/2025 11:04 AM EST Pulse 74 02/09/2025 10:45 AM EST Temperature 36.3 C (97.3 F) 02/09/2025 10:45 AM EST Respiratory Rate - - Oxygen Saturation 94% 02/09/2025 10:45 AM EST Inhaled Oxygen Concentration - - Weight 141 kg (311 lb) 02/09/2025 10:45 AM EST Height 175.3 cm (5' 9 ) 02/09/2025 10:45 AM EST Body Mass Index 45.93 02/09/2025 10:45 AM EST documented in this encounter Ordered Prescriptions Prescription Sig Dispense Quantity Refills Last Filled Start Date End Date flash glucose scanning reader ([employer] Patti 14 Day [place]) miscIndications:DM (diabetes mellitus), type 2 with neurological complications ([facility] V24, [facility] V28) Apply 1 Applicator topically 3 times daily. To check blood sugar 200 each 3 02/09/2025 documented in this encounter Progress Notes * Presley Fuller NP - 02/09/2025 11:00 AM EST Images from the original note were not included. Patient Education High Blood Pressure: Care Instructions Overview It's normal for blood pressure to go up and down throughout the day. But if it stays up, you have high blood pressure. Another name for high blood pressure is hypertension. For diagnosis, the top number may be 130 to 140 or higher. The bottom number may be 80 to 90 or higher. Despite what a lot of people think, high blood pressure usually doesn't cause headaches or make youfeel dizzy or lightheaded. It usually has no symptoms. But it does increase your risk of stroke, heart attack, and other problems. You and your doctor will talk about your risks of these problems based on your blood pressure. Your doctor will give you a goal for your blood pressure. Your goal will be based on your health and your age. Lifestyle changes, such as eating healthy and being active, are always important to help lower blood pressure. You might also take medicine to reach your blood pressure goal. Follow-up care is a morrissey part of your treatment and safety. Be sure to make and go to all appointments, and call your doctor if you are having problems. It's also a good idea to know your test resultsand keep a list of the medicines you take. How can you care for yourself at home? Medical treatment If you stop taking your medicine, your blood pressure will go back up. You may take one or more types of medicine to lower your blood pressure. Be safe with medicines. Take your medicine exactly as prescribed. Call your doctor if you think you are having a problem with your medicine. See your doctor regularly. You may need to see the doctor more often at first or until your blood pressure comes down. If you are taking blood pressure medicine, talk to your doctor before you take decongestants or anti-inflammatory medicine, such as ibuprofen. Some of these medicines can raise blood pressure. Learn how to check your blood pressure at home. Talk to your doctor before you start taking aspirin every day. Aspirin can help certain people lower their risk of a heart attack or stroke. But taking aspirin isn't right for everyone, because it can cause serious bleeding. Lifestyle changes Stay at a weight that's healthy for you. This is especially important if you put on weight around the waist. Losing even 10 pounds can help you lower your blood pressure. If your doctor recommends it, get more exercise. Walking is a good choice. Bit by bit, increase theamount you walk every day. Try for at least 30 minutes on most days of the week. Avoid or limit alcohol. Talk to your doctor about whether you can drink any alcohol. Try to limit how much sodium you eat to less than 2,300 milligrams (mg) a day. Your doctor may ask you to try to eat less than 1,500 mg a day. Eat plenty of fruits (such as bananas and oranges), vegetables, legumes, whole grains, and low-fat dairy products. Lower the amount of saturated fat in your diet. Saturated fat is found in animal products such as milk, cheese, and meat. Limiting these foods may help you lose weight and also lower your risk for heart disease. Do not smoke or vape. Smoking or vaping increases your risk for heart attack and stroke. If you need help quitting, talk to your doctor about quit programs and medicines. These can increase your chances of quitting for good. When should you call for help? Call 911 anytime you think you may need emergency care. This may mean having symptoms that suggest your blood pressure is causing a serious heart or blood vessel problem. Your blood pressure may be 180/120 or higher. For example, call 911 if: You have symptoms of a heart attack. These may include: Chest pain or pressure, or a strange feeling in the chest. Sweating. Shortness of breath. Nausea or vomiting. Pain, pressure, or a strange feeling in the back, neck, jaw, or upper belly or in one or both shoulders or arms. Lightheadedness or sudden weakness. A fast or irregular heartbeat. NOTE: After calling 911, the linecasting machine keyboard operator may tell you to chew 1 adult-strength or 2 to 4 low-dose aspirin. Wait for an ambulance. Do not try to drive yourself. You have symptoms of a stroke. These may include: Sudden numbness, tingling, weakness, or loss of movement in your face, arm, or leg, especially on only one side of your body. Sudden vision changes. Sudden trouble speaking. Sudden confusion or trouble understanding simple statements. Sudden problems with walking or balance. A sudden, severe headache that is different from past headaches. You have severe back or belly pain. Do not wait until your blood pressure comes down on its own. Get help right away. Call your doctor now or seek immediate care if: Your blood pressure is much higher than normal (such as 180/120 or higher), but you don't have symptoms. You think high blood pressure is causing symptoms, such as: Severe headache. Blurry vision. Watch closely for changes in your health, and be sure to contact your doctor if: Your blood pressure measures higher than your doctor recommends at least 2 times. That means the top number is higher or the bottom number is higher, or both. You think you may be having side effects from your blood pressure medicine. Where can you learn more? Scan the QR code or Go to https://www.Geogoer.net/dannyorlando Enter X567 in the search box to learn more about High Blood Pressure: Care Instructions. Current as of: November 07, 2023 Content Version: 14.6 ?? [employer]. Care instructions adapted under license by your healthcare professional. If you have questions about a medical condition or this instruction, always ask your healthcare professional. [employer], disclaims any warranty or liability for your use of this information. Patient Education DASH Diet: Care Instructions Your Care Instructions The DASH diet is an eating plan that can help lower your blood pressure. DASH stands for Dietary Approaches to Stop Hypertension. Hypertension is high blood pressure. The DASH diet focuses on eating foods that are high in calcium, potassium, and magnesium. These nutrients can lower blood pressure. The foods that are highest in these nutrients are fruits, vegetables, low-fat dairy products, nuts, seeds, and legumes. But taking calcium, potassium, and magnesium supplements instead of eating foods that are high in those nutrients does not have the same effect. The DASH diet also includes whole grains, fish, and poultry. The DASH diet is one of several lifestyle changes your doctor may recommend to lower your high blood pressure. Your doctor may also want you to decrease the amount of sodium in your diet. Lowering sodium while following the DASH diet can lower blood pressure even further than just the DASH diet alone. Follow-up care is a morrissey part of your treatment and safety. Be sure to make and go to all appointments, and call your doctor if you are having problems. It's also a good idea to know your test resultsand keep a list of the medicines you take. How can you care for yourself at home? Following the DASH diet Eat 4 to 5 servings of fruit each day. A serving is 1 medium-sized piece of fruit, 1/2 cup raw or canned fruit, 1/4 cup dried fruit, or 4 ounces (1/2 cup) of fruit juice. Choose fruit more often thanfruit juice. Eat 4 to 5 servings of vegetables each day. A serving is 1 cup of lettuce or raw leafy vegetables, 1/2 cup of chopped or cooked vegetables, or 4 ounces (1/2 cup) of vegetable juice. Choose vegetablesmore often than vegetable juice. Get 2 to 3 servings of low-fat and fat-free dairy each day. A serving is 8 ounces of milk, 1 cup ofyogurt, or 1?? ounces of cheese. Eat 6 to 8 servings of grains each day. A serving is 1 slice of bread, 1 ounce of dry cereal, or 1/2 cup of cooked rice, pasta, or cooked cereal. Try to choose whole-grain products as much as possible. Limit lean meat, poultry, and fish to 6 ounces or less each day. One egg counts as 1 ounce. Eat 4 to 5 servings of nuts, seeds, and legumes (cooked dried beans, lentils, and split peas) each week. A serving is 1/3 cup of nuts, 2 tablespoons of seeds, 2 tablespoons of peanut butter, or 1/2 cup of cooked beans or peas. Limit fats and oils to 2 to 3 servings each day. A serving is 1 teaspoon of vegetable oil or 2 tablespoons of salad dressing. Limit sweets and added sugars to 5 servings or less a week. A serving is 1 tablespoon jelly or jam,1/2 cup sorbet, or 1 cup of lemonade. Eat less than 2,300 milligrams (mg) of sodium a day. If you limit your sodium to 1,500 mg a day, you can lower your blood pressure even more. Be aware that all of these are the suggested number of servings for people who eat 1,800 to 2,000 calories a day. Your recommended number of servings may be different if you need more or fewer calories. Tips for success Start small. Make small changes, and stick with them. Once those changes become habit, add a few more changes. Try some of the following: Make it a goal to eat a fruit or vegetable at every meal and at snacks. This will make it easy to get the recommended amount of fruits and vegetables each day. Try yogurt topped with fruit and nuts for a snack or healthy dessert. Add lettuce, tomato, cucumber, and onion to sandwiches. Have a variety of cut-up vegetables with a low-fat dip as an appetizer instead of chips and dip. Sprinkle sunflower seeds or chopped almonds over salads. Or try adding chopped walnuts or almonds to cooked vegetables. Try some vegetarian meals using beans and peas. Add garbanzo or kidney beans to salads. Make burritos and tacos with mashed oleary beans or black beans. Where can you learn more? Scan the QR code or Go to https://www.Geogoer.net/dannychart Enter H967 in the search box to learn more about DASH Diet: Care Instructions. Current as of: January 14, 2024 Content Version: 14.6 ?? [id number] [employer]. Care instructions adapted under license by your healthcare professional. If you have questions about a medical condition or this instruction, always ask your healthcare professional. [employer], disclaims any warranty or liability for your use of this information. * Fran Crawford MA - 02/09/2025 11:00 AM EST BS 115 per patient * Presley Fuller NP - 02/09/2025 11:00 AM EST PATIENT'S PCP: Mago Vidal MD LAST VISIT IN THIS DEPARTMENT: 01/08/2025 Rayna Sabillon is a 49 y.o. (: 1975) male who presents today for: Chief Complaint Patient presents with Follow-up BP follow up SUBJECTIVE History of Present Illness The patient is a 49-year-old male who presents for a follow-up of blood pressure, weight management, and chronic back pain. He has a past medical history of beta thalassemia trait, chronic back pain,obesity followed by weight management clinic, carpal tunnel syndrome, diabetes, hypertension, GERD,CLAY, arthritis, vitamin D and vitamin B-12 deficiency. He has been monitoring his blood pressure at home, which has consistently been high. He reports no adverse effects from the oral medication. He takes his blood pressure medication in the morning and has incorporated exercise into his routine. He is currently on a regimen of lisinopril 30 mg. He has lost 10 pounds since his last visit. He has been on Zepbound for the past 2 weeks, which haseffectively suppressed his appetite. He maintains a healthy diet, consuming breakfast and lunch, but does not experience any cravings between meals. He is requesting a new prescription for a cane due to chronic lower back pain, which he has been managing for several years. He has an upcoming appointment with pain management on 03/13/2025. He alsoreports knee pain. He is under the care of Dr. Munoz, an inventory specialist manager, for his back issues. His last injection provided relief for approximately 3 to 4 years. He recalls a period of severeobesity when his weight approached 500 pounds, necessitating the use of a scooter for mobility. He had an eye checkup last week. Diet: He maintains a healthy diet, consuming breakfast and lunch, but does not experience any cravings between meals. Review Of System Review of Systems Constitutional: Negative. Respiratory: Negative. Cardiovascular: Negative. Gastrointestinal: Negative. Endocrine: Negative. Genitourinary: Negative. Musculoskeletal: Negative. Skin: Negative. Neurological: Negative. Hematological: Negative. The following portions of the patient's chart were reviewed in this encounter and updated as appropriate: OBJECTIVE Vitals: 02/09/25 1045 02/09/25 1104 BP: (!) 151/87 (!) 142/86 BP Location: Left arm Patient Position: Sitting Pulse: 74 Temp: 36.3 ??C (97.3 ??F) TempSrc: Temporal SpO2: 94% Weight: 141 kg (311 lb) Height: 1.753 m (69 ) BP Readings from Last 5 Encounters: 02/09/25 (!) 142/86 01/08/25 (!) 167/95 01/08/25 (!) 146/86 09/11/24 138/88 03/13/24 132/78 Body mass index is 45.93 kg/m??. BMI is greater than 25.0 (above the normal range) - see Plan Wt Readings from Last 5 Encounters: 02/09/25 141 kg (311 lb) 01/08/25 145 kg (320 lb) 01/08/25 144 kg (318 lb) 09/11/24 144 kg (317 lb) 03/13/24 139 kg (306 lb) Allergies[1] Active Medication: Current Outpatient Medications Medication Instructions acetaminophen (TYLENOL) 500 mg tablet TAKE 1 TABLET BY MOUTH EVERY 4 HOURS NEEDED (PAIN). albuterol HFA (PROAIR HFA ; PROVENTIL HFA ; VENTOLIN HFA) 90 mcg/actuation inhaler Prescribed in Pulmonology ALPRAZOLAM ORAL Prescribed in psychiatry blood sugar diagnostic (FreeStyle Lite Strips) test strip USE CHRIS LO INDICADO ALEXIS VECES AL VIGNESH calcium citrate (CALCITRATE) 1200 mg (250 mg elemental calcium) tablet TOME DOS TABLETAS POR VIA ORAL TODOS [place] RIZZO cholecalciferol (VITAMIN D3) 2,000 Units, oral, Daily citalopram (CELEXA) 40 mg, oral, Daily cyanocobalamin (VITAMIN B-12) 500 mcg tablet Take 1 tablet (500 mcg total) by mouth 1 (one) time each day. Prescribed by Dr. Marcy Ortez-Mahad, with folic acid, 400 mcg tablet 1 tablet, oral, Daily flash glucose scanning reader (FreeStyle Patti 14 Day [place]) [facility] Apply 1 Applicator topically 3 times daily. To check blood sugar freestyle (FreeStyle Lancets) 28 gauge lancets Use to check blood sugars once daily hydrOXYzine pamoate (VISTARIL) 25 mg capsule Take 1 capsule (25 mg total) by mouth. Prescribe by psychiatrist lisinopriL (PRINIVIL,ZESTRIL) 30 mg, oral, Daily loperamide (IMODIUM) 2 mg capsule Take 1 Capsule by mouth every 6 hours as needed for Diarrhea. metFORMIN XR (GLUCOPHAGE-XR) 500 mg 24 hr tablet TOME DOS TABLETAS POR VIA ORAL TODOS [place] multivitamin (Multiple Vitamins) tablet OTC omeprazole (PRILOSEC) 20 mg, oral, Daily vitamin A 3,000 mcg (10,000 unit) capsule TOME 1 CAPSULA POR VIA ORAL TODOS [place] RIZ[place] zolpidem (AMBIEN) 10 mg tablet Take 1 tablet (10 mg total) by mouth at bedtime as needed for sleep.Prescribe by psychiatrist Physical Exam Vitals reviewed. Constitutional: Appearance: Normal appearance. Cardiovascular: Rate and Rhythm: Normal rate and regular rhythm. Pulses: Normal pulses. Heart sounds: Normal heart sounds. Pulmonary: Effort: Pulmonary effort is normal. Breath sounds: Normal breath sounds. Abdominal: General: Bowel sounds are normal. Palpations: Abdomen is soft. Musculoskeletal: General: Normal range of motion. Cervical back: Normal range of motion and neck supple. Skin: General: Skin is warm and dry. Neurological: General: No focal deficit present. Mental Status: He is alert. Mental status is at baseline. Imaging No Pertinent Imaging Laboratory: CBC: Lab Results Component Value Date WBC 10.2 03/13/2024 HGB 12.4 (L) 03/13/2024 HCT 42.8 03/13/2024 MCV 63.4 (L) 03/13/2024 PLT 261 03/13/2024 CMP: Lab Results Component Value Date NA 141 03/13/2024 K 4.0 03/13/2024 CL 107 03/13/2024 CO2 26 03/13/2024 GLUCOSE 99 03/13/2024 BUN 13 03/13/2024 CREATININE 0.72 03/13/2024 CALCIUM 8.6 03/13/2024 PROT 7.5 03/13/2024 ALBUMIN 3.9 03/13/2024 BILITOT 0.6 03/13/2024 AST 30 03/13/2024 ALT 45 03/13/2024 ALKPHOS 93 03/13/2024 EGFR 111 03/13/2024 A1c/Microalbuminuria/LDL/GFR: Lab Results Component Value Date HGBA1C 6.5 (H) 09/15/2024 HGBA1C 5.7 03/13/2024 HGBA1C 6.0 12/21/2022 Lab Results Component Value Date MICROALBUR 20.7 09/15/2024 LDLCALC 63 03/13/2024 CREATININE 0.72 03/13/2024 MICROALBCREA 9 09/15/2024 Lipids: Lab Results Component Value Date CHOL 112 03/13/2024 TRIG 58 03/13/2024 HDL 37 (L) 03/13/2024 LDLCALC 63 03/13/2024 VLDL 11.6 03/13/2024 NONHDLC 75 03/13/2024 CHOLHDL 3.0 03/13/2024 TSH: Lab Results Component Value Date TSH 1.87 03/13/2024 PSA: Lab Results Component Value Date PSA 0.49 03/13/2024 Lab Results Component Value Date LDLCALC 63 03/13/2024 1. Uncontrolled hypertension 2. Class 3 drug-induced obesity with serious comorbidity and body mass index (BMI) of 45.0 to 49.9 in adult ([facility] V24, [facility] V28) 3. Chronic bilateral low back pain with bilateral sciatica 4. DM (diabetes mellitus), type 2 with neurological complications ([facility] V24, [facility] V28) Assessment & Plan 1. Uncontrol Hypertension: - Blood pressure readings have shown a decrease but remain above the desired range. - No side effects from the current medication were reported. - Patient is not interested in increasing lisinopril or starting a new antihypertensive medication at this time. - Continue with the current dosage of lisinopril 30 mg. - Follow-up appointment scheduled for 1 month to reassess blood pressure. - Consider initiating dual antihypertensive therapy if blood pressure remains elevated. - Advise to monitor sodium intake and persist in weight loss efforts. 2. Obesity and Weight management: - Lost 10 pounds since the last visit. - Currently taking Zepbound to aid in weight loss followed by weight management center, Dr. Momin - Reports not feeling hungry and eating balanced meals. - Advise to continue with the current regimen and maintain a healthy diet and exercise routine. 3. Chronic back pain: - Appointment with pain management on 03/13/2025 for chronic lower back pain. - Reports last injection provided relief for three to four years. - Advise to continue with the pain management plan and follow up with inventory specialist manager as needed. 4. Diabetes Type II - Last A1c was 6.1% - Patient is currently on Zepbound for weight loss which will positively impact his blood sugar levels and decrease his A1c further. - Patient is to follow a low-carb diet. - He completed his A1c today, results pending. 5. Health maintenance - Patient deny COVID and flu vaccine - Hepatitis C screening ordered results pending - Patient is ordered for colonoscopy which is scheduled February 26, 2025. - Diabetic eye exam completed a week ago Follow-up: - Patient will follow up in 1 month. Patient understands the plan and is in agreement with the plan. FOLLOW-UP: Follow up in about 1 month (around 03/11/2025) for follow up with care team. Presley Fuller NP ADULT MEDICINE [address] I have obtained verbal consent from Rayna Bentonrio prior to the recording. I have advised Rayna Sabillon that he may refuse the recording and require the recording to be turned off at any time during this encounter. Today's documentation was made using voice recognition software.This note may contain grammatical errors secondary to this software. [1] Allergies Allergen Reactions Morphine Sulfate Other Reaction(s): Rash/Dermatitis documented in this encounter Plan of Treatment Upcoming Encounters Date Type Department Care Team (Late st Contact Info) Description 02/26/2025 2:30 PM EST Appointment [facility] End[facility] [address] [place] [id number] Ramakrishna Stewart MD [address] [facility] [address] [place] [address] 03/11/2025 10:00 AM EST Office Visit [address] [phone] Presley Fuller NP [address] [place] [address] 06/16/2025 9:00 AM EDT Office Visit Bariat[facility] [address] [facility] [address] [place] [phone] Zack Moimn MD [address] [place] [phone] documented as of this encounter Goals Goal Patient Goal Type Associated Problems Recent Progress Patient-Stated? 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 To check blood sugar Reorder 02/15/2018 02/09/2025 documented as of this encounter Orders General Supply Count Last Ordered Date First Or dered Date CANE 1 02/09/2025 documented in this encounter Additional Health Concerns Active Problems Noted Date Diagnosed Date Autogenerated Problem 01/13/2025 Assessment Noted Time PHQ-9 Depression Total Score: 0 02/10/20 25 10:54 AM EST documented as of this encounter Care Teams Science Professor Relationship Specialty Start Date End Date Mago Vidal MD [address] [place] [address] PCP - General Internal Medicine 02/22/15 documented as of this encounter
--- NOTE | 2025-02-11 10:38 | MHC.OFFVIS ---
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 She complains on this pain for 7 years. She reports his pain today 12/17. Because of his pain he can not sleep normally he can do activities of daily living, he is unable to take care of himself but he manages to function almost normally. He is on permanent disability. He needs walker or a cane for ambulation. Weather changes in movements aggravate his pain. Standing and sitting aggravates his pain. In terms of tissue damage he describes his pain as stabbing, sharp, hurting, aching, heavy, exhausting, tight, squeezing sensation. He had images of his lumbar spine but those were long time ago. He had physical therapy 2 years ago with [facility] and aquatherapy with the same organization with minimal improvement with his pain. He had some injections with [employer] [facility] and some of them were effective to control his pain. The names and nature of the injection is unknown to the patient. Past medical history significant for morbid obesity, hypertension, depression, heartburn, diabetes, and arthritis. Past surgical history significant for gastric sleeve surgery. He has continues to try to lose his weight. He denies smoking cigarettes denies drinking alcohol drinks coffee 2-3 times daily a year and he denies recreational drugs. [facility] Medical History Asthma Hypertension Surgical History H/O gastric bypass Social History Household Members: None Housing: Apartment Do you presently have visiting nurse or other home services: No Second Hand Smoke Exposure: No Advance Directives Date on File: 08/12/20 service: No Current occupational status: disabled Review of Systems Const All systems reviewed & are unremarkable except as noted in HPI and below ENT Reports Normal hearing present Neuro Reports Normal hearing present, Denies Abnormal speech present, Denies confusion and Denies Sensory deficit (Neuro) Psych Denies confusion Physical Exam Vital Signs: Last Vital Signs Pulse 88 02/11/25 10:39 Resp 16 02/11/25 10:39 BP 197/89 H 02/11/25 10:39 Pulse Ox 96 02/11/25 10:39 Oxygen Delivery Method Room Air 02/11/25 10:39 BMI result Body Mass Index 43.8 Const General: no acute distress; No confusion Nutritional Appearance: obese morbidly obese Orientation/consciousness: patient oriented x3 and No confusion Eyes General: appearance normal, both eyes and all related structures Pupils: Equal, round and reactive pupils present EOM: EOMs intact bilaterally Neck Neck: Yes full ROM Chest Chest palpation & inspection: normal inspection of the chest Resp Effort & Inspection: normal respiratory effort, able to speak in complete sentences, normal respiratory pattern, no audible wheezes and no cough Cardio Jugular venous distension: no JVD GI Inspection: Yes normal to inspection Back/Spine/Pelvis Other: Unable to stand on bilateral tiptoes and bilateral heels. Reports severe pain sensation of the weakness in bilateral lower extremity. Flexing forward aggravates his pain. Walking aggravate his pain. Kal test is positive bilaterally, pelvic compression test is positive bilaterally, pelvic distraction test is equivocal, Stinchfield test is positive bilaterally.Baker test is positive bilaterally. SLR is negative and actually patient reports SLR on the left alleviating his pain. Lasegue test is negative bilaterally. Neuro General: patient oriented x3, gait normal and No confusion Cranial nerves: Yes CN's II-XII intact bilaterally, Yes Equal, round and reactive pupils present, Yes Normal hearing present and Yes Ability to bilaterally elevate shoulders present Speech: No Abnormal speech present Gait exam (Neuro): Normal gait present Motor exam (neuro): 5/5 motor strength present throughout Sensory Exam: No Sensory deficit (Neuro) Extrem General: No pedal edema Psych Speech and movement: Normal speech and movement present Affect: normal affect Attitude: cooperative Thought process: Normal thought process present Thought content: Normal thought content present Insight: Good insight present (Psych) Judgement: Good judgement present (Psych) Assessment & Plan Assessment & Plan (1) Sacroiliitis: Code(s): M46.1 - Sacroiliitis, not elsewhere classified Category: Medical (2) Somatic dysfunction of both sacroiliac joints: Code(s): M99.04 - Segmental and somatic dysfunction of sacral region Category: Medical (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 I also will request him to sign medical information release note to obtain all the injection he received for in [employer] [facility]. Meanwhile I will schedule him for diagnostic bilateral sacroiliac joint injection because I believe this is the most prominent pain generators in his back. Also facet joints in the lumbar spine most likely significant contributor to his pain syndrome. I will see this patient few days after the procedure. Orders: Orders CT pelvis wo/w IV con Today M46.1 - Sacroiliitis, not elsewhere classified, M99.04 - Segmental and somatic dysfunction of sacral region CT lumbar spine wo/w IV con Today M47.816 - Spondylosis without myelopathy or radiculopathy, lumbar region Medications: Discontinued levofloxacin Discontinued Reason: Patient Completed Course 500 mg PO DAILY 5 days 5 tabs 0RF potassium chloride ER Discontinued Reason: Patient Completed Course 20 mEq PO DAILY 30 tabs 0RF Coding Level of Care Code New Pt Level 3 (91556) Diagnoses Sacroiliitis M46.1 Somatic dysfunction of both sacroiliac joints M99.04 Spondylosis of lumbar region without myelopathy or radiculopathy M47.816
[2025-02-11 10:39] VITALS: BP 197/89; PULSE 88; RESP 16; O2SAT 96; BMI 43.8
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
--- OUTSIDE RECORDS SUMMARY | 2025-02-11 12:12 | XMS_ITS | Encounter Summary ---
Author Organization [facility] Address [address] [place] [address] Care Team Providers Care General Operations Manager Name Role Phone Mago Vidal MD Primary Care Provider [phone] Encounter Details Date Type Department Care Team (Late st Contact Info) Description 02/09/2025 Results Follow-Up Adult Medicine [facility] [address], [place] [phone] Presley Fuller, [employer]IC [address] [place], [place] Social History Tobacco Use Types Packs/Day Years [...] care for your loved ones. For example, veterinarian laboratory animal care or elderly care for an older adult? [...] Info) Description 02/26/2025 2:30 PM EST Appointment [facility] [address] [place] [phone] Ramakrishna Stewart MD [address] [address] 03/11/2025 10:00 AM EST Office Visit Adult Medicine [address] [phone] Presley Fuller NP [address] [place] [address] 06/16/2025 9:00 AM EDT Office Visit Bariatric Surgery - [place] [address] [facility] [address] [place] [phone] Zack Momin MD [address] [place] [phone] documented as of this encounter Goals Goal Patient Goal Type Associated Problems Recent Progress Patient-Stated? Author Autogenera nichol Goal Care Plan Autogenerated Problem No Sharon Vaughn documented as of this encounter Visit Diagnoses Not on filedocumented in this encounter Additional Health Concerns Active Problems Noted Date Diagnosed Date Autogenerated Problem 01/13/2025 Assessment Noted Time PHQ-9 Depression Total Score: 0 02/10/20 25 10:54 AM EST documented as of this encounter Care Teams General Operations Manager Relationship Specialty Start Date End Date Mago Vidal MD [address] [place] [address] PCP - General Internal Medicine 02/22/15 documented as of this encounter
== END 2025-02-11 11:17 | disposition home or self-care (01) ==
LOC: HO.PMC 10:29
PROVIDERS: PCP Internal Medicine; Visit Provider Anesthesiology
DX: M46.1 Sacroiliitis, not elsewhere classified (principal); M99.04 Segmental and somatic dysfunction of sacral region; M47.816 Spondylosis without myelopathy or radiculopathy, lumbar region
CPT/HCPCS: 99204

== ENCOUNTER → 2025-02-11 10:28 | Outpatient (BNVA) | payer OTHER, SELFPAY | PROVIDERS: PCP Internal Medicine; Visit Provider Anesthesiology | DX: M47.816 Spondylosis without myelopathy or radiculopathy, lumbar region (principal); M99.04 Segmental and somatic dysfunction of sacral region; M46.1 Sacroiliitis, not elsewhere classified | CPT/HCPCS: 99202 ==

== ENCOUNTER 2025-04-07 07:02 | Outpatient (REF) | payer OTHER, SELFPAY ==
--- NOTE | ~2025-04-07 | FL_ITS ---
EXAMINATION: FLUOROSCOPY GUIDANCE FOR NEEDLE PLACEMENT CLINICAL INFORMATION: M46.1 - Sacroiliitis, not elsewhere classified COMPARISON: None available. TECHNIQUE: Fluoroscopy guidance for pain management procedure. FINDINGS: 4 submitted fluoroscopic images demonstrate needle placement and contrast injection over the bilateral sacroiliac joints. FLUOROSCOPY TIME: 44 seconds DOSE AREA PRODUCT: [id number] mGy-cm2 FL/FL guidance in treatment room IMPRESSION: Fluoroscopy guidance for pain management procedure. Electronically signed by: Spring Pineda MD 04/08/2025 09:37 AM EST
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
--- OUTSIDE RECORDS SUMMARY | 2025-04-07 08:48 | XMS_ITS | Encounter Summary ---
Author Organization [facility] Address [address] [place] [address] Care Team Providers Care Cutter Banana Room Name Role Phone Mago Vidal MD Primary Care Provider [phone] Encounter Details Date Type Department Care Team ([facility] Contact Info) Description 02/27/2025 Results Follow-Up Gastroenterology - [address] [phone] Ramakrishna Stewart MD [address] [place] [address] Social History Tobacco Use Types Packs/Day Years [...] ed Within the last 3 months, ho jayson many times did you visit the emergency [...] for your loved ones. For example, child protective services social worker or elderly care for an older adult? [...] PM EST Sexual Orientation Not on file documented as of this encounter Plan of Treatment Upcoming Encounters Date Type Department Care Team (Late st Contact Info) Description 06/16/2025 9:00 AM EDT Office Visit Bariatric Surgery - [address] [place] [phone] Zack Momin MD [address] [place] [phone] 09/21/2025 11:00 AM EDT Office Visit Adult Medicine [facility] [address] [place] [address] Mago Vidal MD [address] [place] [address] documented as of this encounter Goals Goal [...] documented as of this encounter Care Teams Cutter Banana Room Relationship Specialty Start Date End Date Mago Vidal MD [address] [place] [phone] PCP - General Internal Medicine 02/22/15 documented as of this encounter
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
--- OUTSIDE RECORDS SUMMARY | 2025-04-07 08:48 | XMS_ITS | Encounter Summary ---
Author Organization [facility] Address [address] [place] [address] Care Team Providers Care Membership Secretary Name Role Phone Mago Vidal MD Primary Care Provider [phone] Reason for Visit * Reason Comments Med Refill Encounter Details Date Type Department Care Team ([facility] st Contact Info) Description 03/02/2025 Telephone Bariatric Surgery - [address] [place] [address] Zack Momin MD [address] [place] [address] Social History Tobacco Use Types Packs/Day Years [...] care for your loved ones. For example, early childhood teacher or elderly care for an older adult? [...] on file documented as of this encounter Progress Notes * Lavinia Healy - 03/09/2025 1:44 PM EST Patient did well on Zepbound 2.5 mgs and would like a refill with titration. If appropriate, please send script for Zepbound 5 mgs to their pharmacy. The patient does have a follow up in 06/16/2025 documented in this encounter Plan of Treatment Upcoming Encounters Date Type Department Care Team (Late st Contact Info) Description 06/16/2025 9:00 AM EDT Office Visit Bariatric Surgery - [place] [address] [place] [address] Zack Momin MD [address] [place] [phone] 09/21/2025 11:00 AM EDT Office Visit Adult Medicine [facility] [address] [place] [address] Mago Vidal MD [address] [place] [address] documented as of this encounter Goals Goal Patient Goal Type Associated Problems Recent Progress Patient-Stated? Author Autogenera nichol Goal Care Plan Autogenerated Problem No RoderickSharon documented as of this encounter Visit Diagnoses Diagnosis Obstructive sleep apnea (adult) (pediatric) Obesity, class 3 (CMS/HCC V28) documented in this encounter Additional Health Concerns Active Problems Noted Date Diagnosed Date Autogenerated Problem 01/13/2025 Assessment Noted Time PHQ-9 Depression Total Score: 0 02/10/20 25 10:54 AM EST documented as of this encounter Care Teams Membership Secretary Relationship Specialty Start Date End Date Mago Vidal MD [address] [place] [address] PCP - General Internal Medicine 02/22/15 documented as of this encounter
--- OUTSIDE RECORDS SUMMARY | 2025-04-07 08:48 | XMS_ITS | Encounter Summary ---
Author Organization [facility] Address [address] [place] [address] Care Team Providers Care Finger Buff Sewer Name Role Phone Mago Vidal MD Primary Care Provider [phone] Encounter Details Date Type Department Care Team (Late st Contact Info) Description 02/09/2025 Results Follow-Up Adult Medicine [facility] [address] [place], [place] [phone] Presley Fuller, ALLIED HEALTH INSTRUCTOR [address] [place], [place] Social History Tobacco Use Types Packs/Day [...] loved ones. For example, child protective services specialist or elderly care for an older adult? [...] AM EDT Office Visit Bariatric Surgery - [address] [place] [address] Zack Momin MD [address] [place] [phone] 09/21/2025 11:00 AM EDT Office Visit Adult Medicine [address] [place] [address] Mago Vidal MD [address] [place] [address] documented as of this encounter Goals Goal [...] documented as of this encounter Care Teams Finger Buff Sewer Relationship Specialty Start Date End Date Mago Vidal MD [address] [place] [address] PCP - General Internal Medicine 02/22/15 documented as of this encounter
--- OUTSIDE RECORDS SUMMARY | 2025-04-07 08:48 | XMS_ITS | Encounter Summary ---
Author Organization [facility] Address [address] [place] [address] Care Team Providers Care Power Generation Technician Name Role Phone Mago Vidal MD Primary Care Provider [phone] Encounter Details Date Type Department Care Team ([facility] Contact Info) Description 02/26/2025 Results Follow-Up Gastroenterology - [address] [phone] Ramakrishna Stewart MD [address] [place] [address] Social History Tobacco Use Types Packs/Day Years [...] AM EDT Office Visit Bariatric Surgery - [address] [place] [phone] Zack Momin MD [address] [place] [phone] 09/21/2025 11:00 AM EDT Office Visit Adult Medicine [facility] [address] [place] [address] Mago Vidal MD [address] [place] [address] documented as of this encounter Goals Goal [...] documented as of this encounter Care Teams Power Generation Technician Relationship Specialty Start Date End Date Mago Vidal MD [address] [place] [phone] PCP - General Internal Medicine 02/22/15 documented as of this encounter
== END 2025-04-07 07:03 | disposition home or self-care (01) ==
LOC: CF 07:02
PROVIDERS: Visit Provider Anesthesiology
DX: M46.1 Sacroiliitis, not elsewhere classified (principal); M99.04 Segmental and somatic dysfunction of sacral region
CPT/HCPCS: 27096; J2003; J2795; Q9967

== ENCOUNTER 2025-04-07 13:33 | Outpatient (AMB) | payer OTHER, SELFPAY ==
[2025-04-07 13:35] VITALS: BP 165/88; PULSE 92; RESP 16; O2SAT 94; BMI 43.8
--- NOTE | 2025-04-07 13:35 | A.OFFVIS_ITS ---
Vital Signs 04/07/25 13:35 04/07/25 14:09 Height 5 ft 11 in Weight 314 lb BMI 43.8 BP 165/88 H 167/90 H Blood Pressure Location Lt brachial Lt brachial Position Sitting Sitting Respiration 16 16 Pulse 92 83 Pulse Source Pulse Oximeter Pulse Oximeter Pulse Oximetry (%) 94 97 Oxygen Delivery Method Room Air Room Air Intake Visit Reasons: Bilateral Diagnostic SIJ Injection Allergies morphine (Morphine) Allergy (Intermediate, Verified 02/11/25 10:44) RASH/SWELLING PFSH Medical History Asthma Hypertension Surgical History H/O gastric bypass Social History Household Members: None Housing: Apartment Do you presently have visiting nurse or other home services: No Second Hand Smoke Exposure: No Advance Directives Date on File: 08/12/20 service: No Current occupational status: disabled Physical Exam Vital Signs: Last Vital Signs Pulse 83 04/07/25 14:09 Resp 16 04/07/25 14:09 BP 167/90 H 04/07/25 14:09 Pulse Ox 97 04/07/25 14:09 Oxygen Delivery Method Room Air 04/07/25 14:09 BMI result Body Mass Index 43.8 Assessment & Plan Assessment & Plan (1) Sacroiliitis: Code(s): M46.1 - Sacroiliitis, not elsewhere classified Category: Medical (2) Somatic dysfunction of both sacroiliac joints: Code(s): M99.04 - Segmental and somatic dysfunction of sacral region Category: Medical Plan Bilateral diagnose sacroiliac joint injection. the risks, benefits and alternatives were discussed with the patient and informed consent was obtained, patient was placed in the prone position on the OR Table. Time out was performed delineating correct site and side of the procedure , name and of the patient, patient participated in time out procedure. The lower back and upper buttocks of the patient were prepped with ChloraPrep and draped with sterile self adhesive utility towels. C-arm was brought over the operating field and picture of the right SI joint was demonstrated on the screen. Tilting C-arm contralateral to the left the posterior silhouette of the sacroiliac joint was superimposed on anterior silhouette of the sacroiliac joint. The point slightly medial to the sacroiliac joint silhouette was injected with lidocaine 2%, forming skin wheal. After that 22 gauge 3-1/2 inch spinal needle was inserted through the skin wheal and advanced to were the sacr oiliac joint in tunnel vision fashion. When the needle entered the sacroiliac joint capsule injection of the contrast was performed delineating mostly periarticular spread of the contrast. After that injection of the treatment solution of ropivacaine 0.5% 5 cc into the joint was performed. After that the procedure was repeated on the left joint in the mirroring fashion. Upon completion of the injection needle was withdrawn sterile Band-Aid was applied. The patient tolerated the procedure well. Orders: Orders FL guidance in treatment room Today M46.1 - Sacroiliitis, not elsewhere classified Coding Level of Care Code Procedure Only Diagnoses Sacroiliitis M46.1 Somatic dysfunction of both sacroiliac joints M99.04
[2025-04-07 14:09] VITALS: BP 167/90; PULSE 83; RESP 16; O2SAT 97
--- OUTSIDE RECORDS SUMMARY | 2025-04-07 17:25 | XMS_ITS | Encounter Summary ---
Author Organization [facility] Address [address] [place] [address] Care Team Providers Care Dog Handler Name Role Phone Mago Vidal MD Primary Care Provider Encounter Details Date Type Department Care Team ([facility] Contact Info) Description 02/26/2025 Results Follow-Up Gastroenterology - [address] [phone] Ramakrishna Stewart MD [address] [place] [phone] Social History Tobacco Use Types Packs/Day Years [...] for your loved ones. For example, child welfare consultant or elderly care for an older adult? [...] AM EDT Office Visit Bariatric Surgery - [address] [place] [phone] Zack Momin MD [address] [place] [phone] 09/21/2025 11:00 AM EDT Office Visit Adult Medicine [facility] [address] [place] [address] Mago Vidal MD [address] [place] [phone] documented as of this encounter Goals Goal [...] documented as of this encounter Care Teams Dog Handler Relationship Specialty Start Date End Date Mago Vidal MD [address] [place] [address] PCP - General Internal Medicine 02/22/15 documented as of this encounter
--- OUTSIDE RECORDS SUMMARY | 2025-04-07 17:25 | XMS_ITS | Clinical Summary ---
Author Organization [facility] [address] [place] [address] [place] [phone] Phone Care Team Providers Care Company [employer] Name Role Phone Mago iVdal MD Primary Care Provider [phone] Allergies Active Allergy Reactions Criticality Noted Date [...] glucose scanning reader ([employer] Patti 14 Day [place]) miscIndications: DM (diabetes mellitus), type 2 with [...] sleep apnea (adult) (pediatric),Obes ity, class 3 ([facility] V28) Inject 0.5 mL (5 mg total) [...] Chronic back pain 01/02/2014 Overview (01/28/2024): [facility] Ocular hypertension 10/03/2013 DM (diabetes [...] Overview (01/28/2024): Positive test on 07/28/11 at [facility]. Has no anemia but MCV is always low. Depression 04/18/2012 Overview (01/28/2024): And anxiety and treated with Topamax and Xanax. Patient goes to the [facility] in [place] Vitamin D deficiency 04/18/2012 CTS (carpal tunnel [...] 10:00 AM EST Office Visit Adult Medicine [address] [phone] Fuller, Anamaria-Christine N, RN LPN LVN Primary hypertension (Primary Dx); DM (diabetes mellitus), type 2 with neurological complications ([facility] V24, [facility] V28); Class 3 severe obesity due to excess calories with serious comorbidity and body mass index (BMI) of 45.0 to 49.9 in adult ([facility] V24, [facility] V28); Encounter for screening for cardiovascular disorders 03/02/2025 Telephone Bariatric Surgery - [place] [facility] [address] [place] [address] Zack Momin MD 02/27/2025 Results Follow-Up Gastroenterology - [address] [place] [phone] Ramakrishna Stewart MD 02/26/2025 2:21 PM EST Anesthesia Event [facility] Endoscopy [address] [place] [phone] Aaron Steinbreg MD Hard, Shannon, CRNA 02/26/2025 1:23 PM EST - 02/26/2025 11:59 PM EST Hospital Encounter [facility] Endoscopy [address] [place] [phone] Ramakrishna Stewart MD Hard, Shannon, CRNA Colon cancer screening Discharge Disposition: Home or Self Care 02/26/2025 Results Follow-Up Gastroenterology - [address] [phone] Ramakrishna Stewart MD 02/09/2025 11:00 AM EST Office Visit Adult Medicine [address] [phone] Presley Fuller NP Uncontrolled hypertension (Primary Dx); Class 3 drug-induced obesity with serious comorbidity and body mass index (BMI) of 45.0 to 49.9 in adult ([facility] V24, [facility] V28); Chronic bilateral low back pain with bilateral sciatica; DM (diabetes mellitus), type 2 with neurological complications ([facility] V24, [facility] V28) 02/09/2025 10:10 AM EST Lab Draw [address] Encounter for screening for malignant neoplasm of prostate; Need for hepatitis C screening test; DM (diabetes mellitus), type 2 with neurological complications (CMS/HCC V24, CMS/HCC V28); Chronic bilateral low back pain with bilateral sciatica; Blurry vision 02/09/2025 Results Follow-Up [address] [phone] Presley Fuller NP 01/12/2025 Telephone Bariatric Surgery [address] [address] Zack Momin MD 01/08/2025 1:45 PM EDT Office Visit [address] [phone] Zack Momin MD Postoperative intestinal malabsorption (Primary Dx); Class 3 severe obesity due to excess calories with serious comorbidity and body mass index (BMI) of 45.0 to 49.9 in adult (CMS/HCC V24, CMS/HCC V28); CLAY (obstructive sleep apnea); DM (diabetes mellitus), type 2 with neurological complications (CMS/HCC V24, CMS/HCC V28) 01/08/2025 8:45 AM EDT Office Visit [address] [phone] Presley Fuller NP DM (diabetes mellitus), type [...] HISTORICAL CHOLECYSTECTOMY UPPER GASTROINTESTINAL ENDOSCOPY 06/01/2017 PROCEDURE: [place] UPPER GI ENDOSCOPY PERFORMED; COMMENT: NORMAL GASTRIC BYPASS 2009 PROCEDURE: [place] GASTRIC RSTCV W/BYP W/SM INT RCNSTJ LIMIT [...] trait; COMMENT: Positive test on 07/28/11 at [facility]. Has no anemia but MCV is always low. Chronic back pain 01/02/2014 DX:Chronic sanjay k pain; COM[facility] CTS (carpal tunnel syndrome) 01/09/2012 DX: CTS (carpal tunnel syndrome) Depression 04/18/2012 DX:Depression; C OMMENT: And anxiety and treated with Topamax and Xanax. Patient goes to the [facility] in [place] Gait abnormality 01/09/2012 DX:Gait abnorma lity Hypertension [...] for your loved ones. For example, children's ministry director or elderly care for an older adult? [...] AM EDT Office Visit Bariatric Surgery - [place] [address] [facility] [address] [place] [address] Zack Momin MD [address] [place] [address] 09/21/2025 11:00 AM EDT Office Visit Adult Medicine [facility] [address] [place] [address] Mago Vidal MD [address] [place] [address] Health Maintenance Due Date Last Done Comments [...] Maintenance Results * COLONOSCOPY Anesthesia - MAC; [facility] ENDOSCOPY (02/26/2025 2:46 PM EST) Anatomical [...] for surveillance. Narrative 02/26/2025 2:54 PM EST [facility] GI Patient Name: Rayna Oneill Procedure [...] retroflexion views. Procedure Code(s): --- Professional --- 76349, Colonoscopy, flexible; with removal of tumor(s), polyp(s), or other lesion(s) by snare technique Diagnosis Code(s): --- Professional --- Z12.11, Encounter for screening for malignant neoplasm of colon D12.3, Benign neoplasm of transverse colon (hepatic flexure or splenic flexure) CPT copyright 2020 [employer]. All rights reserved. The codes documented in this report are preliminary and upon medical billing coder review may be revised to meet current compliance requirements. Ramakrishna Stewart MD 02/26/2025 2:53:55 PM This report has been signed electronically.Ramakrishna Stewart MD Number of Addenda: 0 Note Initiated On: 02/26/2025 2:20 PM Scope In: Scope Out: Endoscopy Department at [facility] - [address] [place] [phone] Procedure Note Ramakrishna Stewart MD - 02/26/2025 [facility] GI Patient Name: Rayna Oneill Procedure [...] retroflexion views. Procedure Code(s): --- Professional --- 02525, Colonoscopy, flexible; with removal of tumor(s), polyp(s), or other lesion(s) by snare technique Diagnosis Code(s): --- Professional --- Z12.11, Encounter for screening for malignantneoplasm of colon D12.3, Benign neoplasm of transverse colon (hepatic flexure or splenic flexure) CPT copyright 2020 [employer]. All rights reserved. The codes documented in this report are preliminary and upon medical billing coder reviewmay be revised to meet current compliance requirements. Ramakrishna Stewart MD 02/26/2025 2:53:55 PM This report has been signed electronically.Ramakrishna Stewart MD Number of Addenda: 0 Note Initiated On: 02/26/2025 2:20 PM Scope In: Scope Out: Endoscopy Department at [facility] - [address] [place] [phone] IMPRESSION: - One 5 mm polyp at [...] Fecal debris only. 02/27/2025 12:[address] [facility] at 1252 EST Gross Description [...] multiple levels. hs/DG 02/27/2025 12:[address] [facility] Disclaimer Unless otherwise specified, all tissue is 10% NB formalin fixed and paraffin embedded. 02/27/2025 12:[address] [facility] Tissue Structure of right colic flexure / Unknown 02/26/2025 2:36 PM EST 02/26/2025 3:16 PM EST Ramakrishna Stewart MD LAB PATHOLOGY ORDERABLES Fi nal Result [facility] [address] [place] [address], * Prostate specific antigen screen (02/09/2025 10:16 AM EST) PSA 0.57 0.00 - 4.00 ng/mL LAB CHEMISTRY METHOD 02/09/2025 3:[address] [facility] Blood Venous blood specimen / Unknown Venipuncture / Unknown 02/09/2025 10:16 AM EST 02/09/2025 10:[address] [facility] - 02/09/2025 3:57 PM EST The Siemens Advia Centaur Chemiluminescent Immunoassay is used. Results obtained with different assay methods or kits cannot be used interchangeably. Results cannot be interpreted as absolute evidence of the presence or absence of malignant disease. Presley Fuller RN LPN LVN LAB BLOOD ORDERABLES Final R esult Performing Organization Address City/[facility]/ZIP Co de Phone Number [facility] [address] [place] [address], [place] [phone] * Hepatitis C antibody (02/09/2025 10:16 AM EST) [facility] Hepatitis C Antibody Negative Negative LAB CHEMISTRY METHOD 02/09/2025 4:[address] [facility] Blood Venous blood specimen / Unknown Venipuncture / Unknown 02/09/2025 10:16 AM EST 02/09/2025 10:16 AM EST Presley Fuller RN LPN LVN LAB BLOOD ORDERABLES Final R esult Performing Organization Address City/[facility]/ZIP Co de Phone Number [facility] [address] [place] [address], [place] [phone] * Hemoglobin A1c (02/09/2025 10:16 AM EST) [facility] Hemoglobin A1C 5.9 <6.5 % LAB CHEMISTRY METHOD 02/09/2025 4:[address] [facility] Mean Bld Glu Estim. 123 mg/dL LAB CHEMISTRY METHOD 02/09/2025 4:[address] [facility] Blood Venous blood specimen / Unknown Venipuncture / Unknown 02/09/2025 10:16 AM EST 02/09/2025 10:16 AM EST Presley Fuller RN LPN LVN LAB BLOOD ORDERABLES Final R esult Performing Organization Address [facility]/ZIP Co de Phone Number [facility] [address] [place] [address], [place] [phone] * Microalbumin creatinine urine ratio (09/15/2024 11:51 AM EDT) Creatinine, Urine 227.0 mg/dL LAB CHEMISTRY METHOD 09/15/2024 4:[address] [facility] Microalb, Ur 20.7 0.0 - 29.0 mg/L LAB CHEMISTRY METHOD 09/15/2024 4:[address] [facility] Microalb/Creat Ratio 9 <30 mg/g creat LAB CHEMISTRY METHOD 09/15/2024 4:[address] [facility] Urine Urine specimen obtained by clean catch procedure / Unknown Non-blood Collection / Unknown 09/15/2024 11:51 AM EDT 09/15/2024 11:51 AM EDT Mago Vidal MD LAB URINE ORDERABLES Final Resul t Performing Organization Address [facility] Co de Phone Number [facility] [address] [place] [address], [place] [phone] * (ABNORMAL) Lipid panel with reflex to direct LDL (03/13/2024 2:38 PM EST) Cholesterol 112 0 - 200 mg/dL LAB CHEMISTRY METHOD 03/13/2024 5:[address] [facility] Triglycerides 58 0 - 150 mg/dL LAB CHEMISTRY METHOD 03/13/2024 5:[address] [facility] HDL 37(L) >=40 mg/dL LAB CHEMISTRY METHOD 03/13/2024 5:[address] [facility] LDL Calculated 63 0 - 100 mg/dL LAB CHEMISTRY METHOD 03/13/2024 5:[address] [facility] VLDL Cholesterol Hayes 11.6 mg/dL LAB CHEMISTRY METHOD 03/13/2024 5:15 PM [facility] Non HDL Chol. (LDL+VLDL) 75 <145 mg/dL LAB CHEMISTRY METHOD 03/13/2024 5:15 PM [facility] Chol/HDL Ratio 3.0 0.0 - 4.4 LAB CHEMISTRY METHOD 03/13/2024 5:15 PM [facility] Blood Venous blood specimen / Unknown Venipuncture / Unknown 03/13/2024 2:38 PM EST 03/13/2024 2:38 PM EST us Lawrence QURESHI LAB BLOOD ORDERABLES Fin al Result [facility] [address] [place] [address], [place] [phone] * Comprehensive metabolic panel (03/13/2024 2:38 PM EST) Sodium 141 133 - 145 mmol/L LAB CHEMISTRY METHOD 03/13/2024 5:14 PM [facility] Potassium 4.0 3.5 - 5.5 mmol/L LAB CHEMISTRY METHOD 03/13/2024 5:14 PM [facility] Chloride 107 96 - 110 mmol/L LAB CHEMISTRY METHOD 03/13/2024 5:14 PM [facility] CO2 26 21 - 32 mmol/L LAB CHEMISTRY METHOD 03/13/2024 5:14 PM [facility] Anion Gap 8 3 - 11 LAB CHEMISTRY METHOD 03/13/2024 5:14 PM [facility] Glucose 99 70 - 100 mg/dL LAB CHEMISTRY METHOD 03/13/2024 5:14 PM [facility] BUN 13 5 - 25 mg/dL LAB CHEMISTRY METHOD 03/13/2024 5:14 PM [facility] Creatinine 0.72 0.70 - 1.30 mg/dL LAB CHEMISTRY METHOD 03/13/2024 5:14 PM [facility] eGFR 111 >=60 mL/min/1. 73m2 LAB CHEMISTRY METHOD 03/13/2024 5:14 PM [facility] Comment:Calculation based on the Chronic Kidney Disease Epidemiology Collaboration (CKD-EPI) equation refit without adjustment for race. BUN/Creatinine Ratio 18.1 LAB CHEMISTRY METHOD 03/13/2024 5:14 PM [facility] Calcium 8.6 8.5 - 10.5 mg/dL LAB CHEMISTRY METHOD 03/13/2024 5:14 PM [facility] AST (SGOT) 30 10 - 42 unit/L LAB CHEMISTRY METHOD 03/13/2024 5:14 PM [facility] ALT (SGPT) 45 10 - 60 unit/L LAB CHEMISTRY METHOD 03/13/2024 5:14 PM [facility] Alkaline Phosphatase 93 42 - 121 unit/L LAB CHEMISTRY METHOD 03/13/2024 5:14 PM [facility] Total Protein 7.5 6.0 - 8.0 g/dL LAB CHEMISTRY METHOD 03/13/2024 5:14 PM [facility] Albumin 3.9 3.2 - 5.0 g/dL LAB CHEMISTRY METHOD 03/13/2024 5:14 PM [facility] Total Bilirubin 0.6 0.0 - 1.4 mg/dL LAB CHEMISTRY METHOD 03/13/2024 5:14 PM [facility] Blood Venous blood specimen / Unknown Venipuncture / Unknown 03/13/2024 2:38 PM EST 03/13/2024 2:38 PM EST us Lawrence QURESHI LAB BLOOD ORDERABLES Fin al Result [facility] [address] [place] [address], from Last 3 Months or Most Recently Relevant to Health Maintenance Additional Health Concerns Active Problems Noted Date Diagnosed Date Autogenerated Problem 01/13/2025 Insurance [employer] MEDICARE Member Subscriber Plan / Payer (Ef fective 2017-Present) Name:RAYNA ONEILL Relation to Subscriber:Self Name:Rayna Oneill N Payer ID:[id number] Group ID:[id number] Type:Not on file Address: [place] [address] [address] [phone] Advance Directives Documents on File Type Date Recorded Patient Director Of Vocational Guidance Expl anation Health Care Decision (hx) 01/16/2020 AD WOOTEN DIRECTIVE Health Care Decision (hx) 01/16/2020 AD WOOTEN DIRECTIVE Health Care Decision (hx) 03/26/2015 AD WOOTEN DIRECTIVE Health Care Decision (hx) 03/26/2015 AD WOOTEN DIRECTIVE Health Care Decision (hx) 03/26/2015 AD WOOTEN DIRECTIVE Care Teams [employer] Relationship Specialty Start Date End Date Mago Vidal MD [address] [place] [address] PCP - General Internal Medicine 02/22/15
--- OUTSIDE RECORDS SUMMARY | 2025-04-07 17:25 | XMS_ITS | Encounter Summary ---
Author Organization [facility] Address [address] [place] [address] Care Team Providers Care Entry Manager Name Role Phone Mago Vidal MD Primary Care Provider [phone] Reason for Visit * Reason Comments Med Refill Encounter Details Date Type Department Care Team ([facility] st Contact Info) Description 03/02/2025 Telephone Bariatric Surgery - [address] [place] [address] Zack Momin MD [address] [place] [address] Social History Tobacco Use Types [...] for your loved ones. For example, children's service supervisor or elderly care for an older adult? [...] AM EDT Office Visit Bariatric Surgery - [place] [address] [facility] [address] [place] [address] Zack Momin MD [address] [place] [phone] 09/21/2025 11:00 AM EDT Office Visit Adult Medicine [facility] [address] [place] [address] Mago Vidal MD [address] [place] [address] documented as of this encounter Goals Goal [...] documented as of this encounter Care Teams Entry Manager Relationship Specialty Start Date End Date Mago Vidal MD [address] [place] [address] PCP - General Internal Medicine 02/22/15 documented as of this encounter
--- OUTSIDE RECORDS SUMMARY | 2025-04-07 17:25 | XMS_ITS | Encounter Summary ---
Author Organization [facility] Address [address] [place] [address] Care Team Providers Care Optical Instrument Specialist Name Role Phone Mago Vidal MD Primary Care Provider [phone] Encounter Details Date Type Department Care Team (Late st Contact Info) Description 02/09/2025 Results Follow-Up Adult Medicine [facility] [place] [address] [place], [place] [phone] Presley Fuller, MANAGER CASH [address] [place], [place] Social History Tobacco Use Types Packs/Day [...] for your loved ones. For example, children's institution attendant or elderly care for an older [...] AM EDT Office Visit Bariatric Surgery - [address] [place] [address] Zack Momin MD [address] [place] [address] 09/21/2025 11:00 AM EDT Office Visit Adult Medicine [address] [place] [address] Mago Vidal MD [address] [place] [address] documented as of this encounter Goals Goal [...] documented as of this encounter Care Teams Optical Instrument Specialist Relationship Specialty Start Date End Date Mago Vidal MD [address] [place] [id number] PCP - General Internal Medicine 02/22/15 documented as of this encounter
--- OUTSIDE RECORDS SUMMARY | 2025-04-07 17:25 | XMS_ITS | Encounter Summary ---
Author Organization [facility] Address [address] [place] [address] Care Team Providers Care Caramel Cutter Machine Name Role Phone Mago Vidal MD Primary Care Provider [phone] Encounter Details Date Type Department Care Team ([facility] Contact Info) Description 02/27/2025 Results Follow-Up Gastroenterology - [address] [phone] Ramakrishna Stewart MD [address] [place] [phone] Social History Tobacco Use Types Packs/Day Years [...] for your loved ones. For example, child care sitter or elderly care for an older adult? [...] AM EDT Office Visit Bariatric Surgery - [address] [place] [phone] Zack Momin MD [address] [place] [phone] 09/21/2025 11:00 AM EDT Office Visit Adult Medicine [facility] [address] [place] [address] Mago Vidal MD [address] [place] [address] documented as of this encounter Goals Goal [...] documented as of this encounter Care Teams Caramel Cutter Machine Relationship Specialty Start Date End Date Mago Vidal MD [address] [place] [address] PCP - General Internal Medicine 02/22/15 documented as of this encounter
== END 2025-04-07 14:09 | disposition home or self-care (01) ==
LOC: HO.PMCPRC 13:33
PROVIDERS: PCP Internal Medicine; Visit Provider Anesthesiology
DX: M46.1 Sacroiliitis, not elsewhere classified (principal); M99.04 Segmental and somatic dysfunction of sacral region
CPT/HCPCS: 27096